=== PATIENT | male | born 1965 | race Caucasian/White ===

== ENCOUNTER → 2018-11-30 12:23 | Outpatient (CLI) | payer OTHER, SELFPAY ==
[2018-11-30 11:28] VITALS: BMI 26.6
[2018-11-30 13:30] LABS: Glucose 95 mg/dL (74-106)
[2018-11-30 13:31] LABS: ALB/GLOB Ratio 1.4 RATIO (0.9-2.4); AST(SGOT) 33 U/L (15-37); Alanine Aminotransfer ALT/SGPT 29 U/L (16-61); Albumin, Serum 4.1 g/dL (3.2-5.0); Alkaline Phosphatase 47 U/L (45-117); Anion Gap 3 (5-15); BUN 8 mg/dL (7-18); BUN/Creat Ratio 7.2 RATIO (10-20); Chloride 100 mmol/L (98-107); Cholesterol 207 mg/dL (200); Creatinine, Serum 1.11 mg/dL (0.70-1.30); EST Glomerular Filtration Rate 74 mL/min (>60); Est Glom Filt Rate - Afr Amer 90 mL/min (>60); Globulin 2.9 g/dL (2.2-4.2); High Density Lipoprotein 89 mg/dL; PSA,Total - Annual Screen 0.22 ng/mL (0.00-4.00); Potassium 4.2 mmol/L (3.5-5.1); Sodium Level 134 mmol/L (136-145); Triglycerides 37 mg/dL; Very Low Density Lipoprotein 7 mg/dL (5-40)
== END ==
PROVIDERS: Family Provider Family Medicine; PCP Family Medicine; Referring Provider Family Medicine; Visit Provider Family Medicine
DX: Z00.00 Encounter for general adult medical examination without abnormal findings (principal)
CPT/HCPCS: 36415; 80053; 80061; 84153; 84403; G0103

== ENCOUNTER → 2019-03-16 09:05 | Outpatient (CLI) | payer OTHER, SELFPAY ==
[2019-03-11 11:19] VITALS: BMI 26.6
--- NOTE | 2019-03-16 09:08 | US_ITS ---
STUDY: ABDOMINAL ULTRASOUND - RIGHT UPPER QUADRANT REASON FOR VISIT: Male, 53 years old. Left lower quadrant pain TECHNIQUE: Ultrasound evaluation of the right upper quadrant was performed with real-time and static milner-scale imaging. TECHNICAL QUALITY: Adequate. COMPARISON: None. FINDINGS: There are somewhat prominent lymph nodes in the left inguinal region measuring up to 1.7 x 1 x 0.7 cm. These demonstrate normal reniform morphology and central fatty hilum. There is no abnormal vascularity. US/Abdomen Limited IMPRESSION: Nonspecific left inguinal lymph nodes. Electronically Signed: Rob Castellano, at 11:48 EDT Tel , Service support ,
== END ==
PROVIDERS: Family Provider Family Medicine; PCP Family Medicine; Referring Provider Nurse Practitioner Family; Visit Provider Nurse Practitioner Family
DX: R10.32 Left lower quadrant pain (principal)
CPT/HCPCS: 76705

== ENCOUNTER → 2019-03-18 17:40 | Outpatient (CLI) | payer OTHER, SELFPAY ==
[2019-03-11 11:19] VITALS: BMI 26.6
--- NOTE | 2019-03-18 17:45 | CT_ITS ---
STUDY: CT ABDOMEN AND PELVIS WITH CONTRAST REASON FOR EXAM: Male, 53 years old. Left groin pain and adenopathy. RADIATION DOSAGE (If Supplied By Facility): CTDIvol = ( 14.94 ) mGy, DLP = ( 893.22 ) mGycm TECHNIQUE: Transaxial images were obtained from the dome of the diaphragm to the symphysis pubis with oral contrast. 100ML IV/Oral Isovue 300 was administered. Sagittal and coronal images were reconstructed. Individualized dose optimization techniques were used for this CT. COMPARISON: None. FINDINGS: The visualized lung bases are unremarkable. The visualized portions of the heart are within normal limits. Normal liver. Normal gallbladder and extrahepatic biliary system. Normal spleen. Normal pancreas. Normal bilateral adrenal glands. Normal right kidney. Normal left kidney. Normal visualized stomach. Normal small intestine. Normal colon. The appendix is visualized and appears normal. There is diffuse atherosclerotic calcification of the abdominal aorta, without a demonstrated aneurysm. Normal inferior vena cava. Normal retroperitoneum. Normal urinary bladder. Shotty inguinal lymph nodes. The largest lymph node on the right is below the inguinal ligament and measures 27 x 5 x 9 mm. The largest lymph node on the left is 5 x 6 x 24 mm with otherwise fairly normal appearing morphology. Minimal degenerative changes of the lumbar spine. Benign appearing cyst of the acetabular roof on the left side. No acute bone or joint findings. CT/Abdomen/Pelvis WITH Contrast IMPRESSION: Shotty bilateral groin lymph nodes as described above. These have otherwise normal morphology. No additional groin abnormalities. Otherwise normal abdomen and pelvic CT exam for age. Electronically Signed: Lisa Jerry MD at 18:56 EDT , Service support ,
== END ==
PROVIDERS: Family Provider Family Medicine; PCP Family Medicine; Referring Provider Nurse Practitioner Family; Visit Provider Nurse Practitioner Family
DX: R10.32 Left lower quadrant pain (principal); R59.0 Localized enlarged lymph nodes
CPT/HCPCS: 74177; Q9967

== ENCOUNTER → 2020-02-23 14:25 | Outpatient (CLI) | payer OTHER, SELFPAY ==
[2020-02-23 13:59] VITALS: BMI 26.6
[2020-02-23 17:04] LABS: Anion Gap 6 (5-15); BUN 8 mg/dL (7-18); BUN/Creat Ratio 8.5 RATIO (10-20); Calcium,Total 8.9 mg/dL (8.5-10.1); Chloride 95 mmol/L (98-107); Creatinine, Serum 0.94 mg/dL (0.70-1.30); EST Glomerular Filtration Rate 90 mL/min (>60); Est Glom Filt Rate - Afr Amer 109 mL/min (>60); Glucose 88 mg/dL (74-106); PSA,Total - Annual Screen 0.24 ng/mL (0.00-4.00); Potassium 4.2 mmol/L (3.5-5.1); Sodium Level 130 mmol/L (136-145)
[2020-02-27 16:08] LABS: Endomysial Antibody IgA Negative (Negative)
[2020-02-27 19:41] LABS: Immunoglobulin A 169 mg/dL (90-386); t-Transglutaminase IgA <2 U/mL (0-3)
== END ==
PROVIDERS: PCP Family Medicine; Referring Provider Family Medicine; Visit Provider Family Medicine
DX: Z00.00 Encounter for general adult medical examination without abnormal findings (principal); R10.9 Unspecified abdominal pain
CPT/HCPCS: 36415; 80048; 82784; 83516; 84153; 86255; G0103

== ENCOUNTER 2020-11-27 09:32 | Emergency (ER) | payer OTHER, SELFPAY ==
[2020-02-23 13:59] VITALS: BMI 26.6
[2020-11-27 09:33] VITALS: BP 156/103; PULSE 76; RESP 15; TEMP 36.8; O2SAT 99; BMI 27.8
--- NOTE | 2020-11-27 10:01 | RAD_ITS ---
STUDY: X-RAY CHEST REASON FOR EXAM: Male, 55 years old. 3 day history of intermittent dizziness. TECHNIQUE: Single AP portable view of the chest. COMPARISON: None. FINDINGS: EKG electrodes are seen. Hyperinflation. The lungs are clear. There is no demonstrated pleural abnormality. Normal size heart. Normal mediastinum and martha. There is prominence of the pulmonary hilar arteries without peripheral pulmonary vascular congestion, suggesting pulmonary hypertension. Normal visualized aortic arch and descending thoracic aorta. Normal visualized thoracic spine. Normal visualized ribs, clavicles, and shoulders. There is no demonstrated abnormality of the visualized soft tissue structures of the upper abdomen. RAD/Chest 1 View (Portable) IMPRESSION: Hyperinflation. Prominence of the central pulmonary arteries. Electronically Signed: Tim Knox MD at 10:48 EDT , Service support ,
--- NOTE | 2020-11-27 10:01 | CT_ITS ---
STUDY: CT BRAIN WITHOUT CONTRAST REASON FOR EXAM: Male, 55 years old. 3 day history of dizziness. RADIATION DOSAGE (If Supplied By Facility): CTDIvol = ( 44.99 ) mGy, DLP = ( 829.85 ) mGycm TECHNIQUE: Transaxial CT imaging of the brain was performed without administration of intravenous contrast material. Individualized dose optimization techniques were used for this CT. COMPARISON: No relevant priors. FINDINGS: Normal soft tissue structures. Normal calvarium. Normal size ventricles and extra-axial spaces for the patient''s age. Normal white matter tracts of the cerebral hemispheres. Normal basal ganglia and thalami. Normal brainstem. There is mild cerebellar atrophy. There is no intracranial hemorrhage. There are no findings of an acute ischemic infarction. Atherosclerotic calcification of the cavernous portions of the internal carotid arteries bilaterally. 8.8 mm polyp or retention cyst in the lateral wall of the right maxillary sinus. CT/Brain/Head without Contrast IMPRESSION: Mild degree of cerebellar atrophy. Electronically Signed: Tim Knox MD at 10:47 EDT , Service support ,
--- NOTE | 2020-11-27 10:01 | EKG12_ITS ---
Test Reason : DIZZY Blood Pressure : / mmHG Vent. Rate : 058 BPM Atrial Rate : 058 BPM P-R Int : 228 ms QRS Dur : 098 ms QT Int : 422 ms P-R-T Axes : 046 060 048 degrees QTc Int : 414 ms Sinus bradycardia with 1st degree A-V block Otherwise normal ECG Confirmed by YOUSUF MACKAY, JESSICA ([id number]), supervising editor news reel ROBERT PURI ([id number]) on 11/29/2020 9:09:16 AM Referred By: Confirmed By:JESSICA TO MD
[2020-11-27 10:16] LABS: Hematocrit 38.4 % (40-54); Hemoglobin 13.1 g/dL (13.0-16.5); Mean Corp Hgb Conc 34.1 g/dL (32-36); Mean Corpuscular Hgb 32.2 pg (27.0-32.0); Mean Corpuscular Volume 94.3 fL (80-94); Mean Platelet Vol. 9.7 fl (6.2-12.0); Platelet Count 210 K/mm3 (150-450); RBC Distribution Width CV 11.8 % (11.6-14.6); RBC Distribution Width SD 40.9 fl (35.1-43.9); Red Blood Count 4.07 M/mm3 (4.6-6.2)
[2020-11-27 10:17] VITALS: BP 135/83; BP 142/84; BP 150/89; PULSE 60; PULSE 62
[2020-11-27 10:38] LABS: ALB/GLOB Ratio 1.3 RATIO (0.9-2.4); AST(SGOT) 35 U/L (15-37); Alanine Aminotransfer ALT/SGPT 30 U/L (16-61); Alkaline Phosphatase 57 U/L (45-117); Anion Gap 5 (5-15); BUN 9 mg/dL (7-18); BUN/Creat Ratio 7.9 RATIO (10-20); Calcium,Total 8.9 mg/dL (8.5-10.1); Chloride 100 mmol/L (98-107); Creatinine, Serum 1.14 mg/dL (0.70-1.30); EST Glomerular Filtration Rate 71 mL/min (>60); Est Glom Filt Rate - Afr Amer 86 mL/min (>60); Estimated Creatinine Clearance 79.81 ml/min; Globulin 3.1 g/dL (2.2-4.2); Glucose 123 mg/dL (74-106); Potassium 3.7 mmol/L (3.5-5.1); Protein, Total 7.1 g/dL (6.4-8.2); Sodium Level 134 mmol/L (136-145)
--- NOTE | 2020-11-27 10:56 | EDS_ITS ---
HPI History of Present Illness Chief Complaint: Dizziness Informant: patient Onset/Context/Timing Onset: Yesterday Quality: Like I am going to pass out Location: Generalized Worsened by: Strenuous activity at times Relieved by: Nothing Associated Symptoms Associated Symptoms: Patient admits to some palpitations and nausea Narrative Narrative: Patient presents with dizziness that has been intermittent since yesterday. Patient states he feels like he is going to pass out. Patient states that sometimes this comes on when he is undergoing strenuous activity such as lifting weights. Patient states other times it comes on when he is at rest. Patient states that sometimes he feels like his heart is racing. Patient also admits to some nausea. 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 [facility] Medical History (Updated 11/27/20 @ 12:[address] Omkar Wolfe DO) Arthritis Bradycardia, sinus Chest discomfort Chest pain Chronic cough Dizziness Hiatal hernia with gastroesophageal reflux disease and esophagitis Home Medications omeprazole 40 mg capsule,delayed release 40 mg PO QDAY PRN cap 02/23/20 [History Last Taken Unknown] sildenafil 100 mg tablet 100 mg PO DAILY PRN #20 tab 04/25/20 [Rx Last Taken Unknown] Allergy/AdvReac Type Severity Reaction Status Date / Time No Known Allergies Allergy Verified 11/27/20 10:05 Family History Mother Heart disease Father Heart disease Grandfather Heart disease Surgical History History of elbow surgery (~10/2014) History of shoulder surgery History of vasectomy Social History Smoking Status: Never smoker alcohol intake: current alcohol intake frequency: a few times a week Alcohol type: beer, wine and hard liquor substance use type: does not use what type of physical activity do you participate in: running and weight training frequency: daily ROS ROS ED Constitutional Constitutional ED: Denies chills or fever(s) Eyes Eyes: Denies change in vision or diplopia ENT ENT ED: Denies rhinorrhea or sore throat Cardiovascular Cardiovascular: Reports palpitations; Denies chest pain Respiratory/Chest Respiratory/Chest: Denies cough or dyspnea Gastrointestinal Gastrointestinal: Reports nausea; Denies vomiting Genitourinary Genitourinary ED: Denies dysuria or hematuria Musculoskeletal Musculoskeletal: Denies back pain or neck pain Integumentary Denies abscess or rash Neurologic Neurologic: Reports headache(s); Denies paresthesias or weakness Allergic/Immunologic Allergic/Immunologic ED: Denies mouth swelling or urticaria EXAM Physical Exam Const Vital Signs: 11/27/20 09:33 11/27/20 09:42 11/27/20 10:17 Temperature 98.2 F Temperature Source Temporal Pulse Rate 76 Pulse Rate [Lying] 60 Pulse Rate [Sitting] 60 Pulse Rate [Standing] 62 Respiratory Rate 15 Respiratory Effort Normal Non-Labored Respiratory Pattern Normal Blood Pressure 156/103 H Blood Pressure [Lying] 135/83 H Blood Pressure [Sitting] 142/84 H Blood Pressure [Standing] 150/89 H Blood Pressure Mean 120 Blood Pressure Mean [Lying] 100 Blood Pressure Mean [Sitting] 103 Blood Pressure Mean [Standing] 109 Pulse Ox 99 Oxygen Delivery Method Room Air 11/27/20 11:48 Temperature Temperature Source Pulse Rate 70 Pulse Rate [Lying] Pulse Rate [Sitting] Pulse Rate [Standing] Respiratory Rate 20 H Respiratory Effort Respiratory Pattern Blood Pressure 143/99 H Blood Pressure [Lying] Blood Pressure [Sitting] Blood Pressure [Standing] Blood Pressure Mean 113 Blood Pressure Mean [Lying] Blood Pressure Mean [Sitting] Blood Pressure Mean [Standing] Pulse Ox 99 Oxygen Delivery Method Room Air Positive well nourished and well developed General Appearance ED: well developed HEENT Reports TM's clear and moist mucous membranes Tympanic Membrane ED: Yes TM's clear Eyes PERRL and EOMs intact bilaterally Neck supple and no JVD Chest Wall inspection of chest normal Resp normal respiratory effort and clear to auscultation bilaterally Cardio regular rate, regular rhythm and no murmurs GI normal to inspection, nondistended, normoactive bowel sounds, non-tender and non-distended Palpation: soft Extremity normal to inspection General Extremety ED: Negative for edema or tenderness General Extremity: Negative for edema Neuro oriented x3, CN's II-XII intact bilaterally and no sensory deficits noted Sensorium / Orientation: alert Motor Exam: strength 5/5 throughout MDM MDM MDM Narrative Medical decision making narrative: EKG was obtained and was normal. Chest x-ray and CT scan of the brain were within normal limits. CBC was normal. Compre hensive metabolic profile was essentially within normal limits. Troponin was normal. Patient was advised of his results. Patient was feeling better on reevaluation. Patient was able to ambulate to the bathroom and back without difficulty. Patient did report that he had his first COVID-19 vaccine last week. Patient states it was not the [employer] vaccine. I discussed the possibility of this being related to the vaccination and the data is unclear on this at this time. Patient was instructed to follow-up with his primary care physician in 5 to 7 days for further evaluation. Patient understood and was agreeable with the plan. All questions were answered. Lab Data Attestation: I reviewed the patient's lab results. Labs: Laboratory Results - last 24 hr 11/27/20 11/27/20 09:48 09:48 WBC 4.0 L RBC 4.07 L Hgb 13.1 Hct 38.4 L MCV 94.3 H MCH 32.2 H MCHC 34.1 RDW Std Deviation 40.9 RDW Coeff of Rafia 11.8 Plt Count 210 MPV 9.7 Sodium 134 L Potassium 3.7 Chloride 100 Carbon Dioxide 29.0 Anion Gap 5 BUN 9 Creatinine 1.14 Estim Creat Clear Calc 79.81 Est GFR (MDRD) Af Amer 86 Est GFR (MDRD) Non-Af 71 BUN/Creatinine Ratio 7.9 L Glucose 123 H Calcium 8.9 Total Bilirubin 0.80 AST 35 ALT 30 Alkaline Phosphatase 57 Troponin I < 0.015 Total Protein 7.1 Albumin 4.0 Globulin 3.1 Albumin/Globulin Ratio 1.3 Radiography Chest X-Ray - ED: 1 View, Read by ED Physician, Read by Radiologist, Normal, Heart, Lungs, Mediastinum, Bony Structures and No Acute Disease Diagnostic Testing: Radiology Impression Brain CT 11/27/20 10:01 IMPRESSION: Mild degree of cerebellar atrophy. Electronically Signed: Tim Knox MD at 10:47 EDT , Service support , Chest X-Ray 11/27/20 10:01 IMPRESSION: Hyperinflation. Prominence of the central pulmonary arteries. Electronically Signed: Tim Knox MD at 10:48 EDT , Service support , EKG Initial EKG: Attestation: I personally reviewed and interpreted this EKG as follows: Interpretation: Sinus Bradycardia (58 with first-degree AV block) Prior EKG tracings: not available for review Discharge Plan Triage Chief Complaint: Dizziness ED Provider: Omkar Wolfe Dx/Rx/DC Orders Clinical Impression: Near syncope Instructions: ED Dizziness, Uncertain Cause, ED Near-Fainting, Uncertain Cause Prescriptions: No Action omeprazole 40 mg capsule,delayed release(DR/EC) 40 mg PO QDAY PRN (Reason: reflux) RF: 0 sildenafil 100 mg tablet 100 mg PO DAILY PRN (Reason: sexual activity) Qty: 20 RF: 3 Primary Care Provider: Luther Tavera Referrals: Luther Tavera, [Primary Care Provider] - Disposition Patient Disposition: Home, self care
[2020-11-27 11:48] VITALS: BP 143/99; PULSE 70; RESP 20; O2SAT 99
[2020-11-27 12:12] VITALS: BP 132/87; PULSE 74; RESP 16; O2SAT 98
== END 2020-11-27 12:12 | disposition home or self-care (01) ==
PROVIDERS: Emergency Provider Emergency Medicine; PCP Family Medicine
DX: R55 Syncope and collapse (principal); R42 Dizziness and giddiness; I44.0 Atrioventricular block, first degree
CPT/HCPCS: 70450; 71045; 80053; 84484; 85027; 93005; 99285; A4216

== ENCOUNTER → 2020-12-21 13:46 | Outpatient (CLI) | payer OTHER, SELFPAY ==
[2020-11-28 08:07] VITALS: BMI 27.8
== END ==
PROVIDERS: PCP Family Medicine; Referring Provider Internal Medicine Cardiovascular Disease; Visit Provider Internal Medicine Cardiovascular Disease
DX: R42 Dizziness and giddiness (principal); R55 Syncope and collapse; R00.1 Bradycardia, unspecified
CPT/HCPCS: 93225; 93226

== ENCOUNTER → 2021-02-22 09:41 | Outpatient (CLI) | payer OTHER, SELFPAY ==
[2021-02-07 13:56] VITALS: BMI 27.5
--- NOTE | 2021-02-22 12:50 | STRESSREP_ITS ---
Stress Test Report Date: 02-22-2021 Procedure: Exercise tolerance test Indications: Sinus bradycardia; near syncope Consent: Per the patient Procedure: The patient exercised on a Anton protocol for 12 minutes and 30 seconds completing Stage IV and 30 seconds of Stage V achieving a peak heart rate of 144 bpm (86% predicted maximal heart rate) with a peak blood pressure 200/82 mmHg and a peak MET capacity of approximately 14 MET's. The baseline ECG demonstrated sinus rhythm. The peak exercise ECG demonstrated somatic/motion artifact with no obvious ECG changes. There were no cardiac dysrhythmias pretest, during exercise, or recovery. The functional capacity was considered good. The patient had no complaint of chest discomfort during exercise or recovery. The examination was discontinued secondary to dyspnea. Impression: 1. Technically adequate (percent predicted maximal heart rate greater than 85%) exercise tolerance test 2. Peak exercise ECG with with somatic/motion artifact with no obvious ECG changes 3. There were no cardiac dysrhythmias during exercise or recovery This note was generated with [employer].ation software. It may contain incorrect words, spelling, and punctuation that were not noted in checking the note before signing.
== END ==
PROVIDERS: PCP Family Medicine; Referring Provider Internal Medicine Cardiovascular Disease; Visit Provider Internal Medicine Cardiovascular Disease
DX: R00.1 Bradycardia, unspecified (principal); R42 Dizziness and giddiness; R55 Syncope and collapse
CPT/HCPCS: 93017

== ENCOUNTER → 2021-04-24 07:27 | Outpatient (CLI) | payer OTHER, SELFPAY ==
[2021-04-24 10:11] LABS: Hematocrit 39.1 % (40-54); Hemoglobin 13.3 g/dL (13.0-16.5); Mean Corpuscular Hgb 32.5 pg (27.0-32.0); Mean Corpuscular Volume 95.6 fL (80-94); Mean Platelet Vol. 10.3 fl (6.2-12.0); Platelet Count 240 K/mm3 (150-450); RBC Distribution Width CV 11.8 % (11.6-14.6); RBC Distribution Width SD 41.1 fl (35.1-43.9); Red Blood Count 4.09 M/mm3 (4.6-6.2); White Blood Count 4.2 K/mm3 (4.4-11.0)
[2021-04-24 10:29] LABS: Vitamin B12 433 pg/mL (211-911)
[2021-04-24 10:31] LABS: Hemoglobin A1c 5.3 % (3.8-5.6)
[2021-04-24 10:50] LABS: ALB/GLOB Ratio 1.2 RATIO (0.9-2.4); AST(SGOT) 33 U/L (15-37); Alanine Aminotransfer ALT/SGPT 30 U/L (16-61); Albumin, Serum 3.7 g/dL (3.2-5.0); Alkaline Phosphatase 53 U/L (45-117); Anion Gap 5 (5-15); BUN 13 mg/dL (7-18); BUN/Creat Ratio 13.2 RATIO (10-20); Calcium,Total 8.9 mg/dL (8.5-10.1); Chloride 103 mmol/L (98-107); Creatinine, Serum 0.98 mg/dL (0.70-1.30); EST Glomerular Filtration Rate 85 mL/min (>60); Est Glom Filt Rate - Afr Amer 102 mL/min (>60); Ferritin 155 ng/mL (26-388); Globulin 3.2 g/dL (2.2-4.2); Glucose 102 mg/dL (74-106); Iron 133 ug/dL (65-175); Potassium 3.6 mmol/L (3.5-5.1); Protein, Total 6.9 g/dL (6.4-8.2); Sodium Level 137 mmol/L (136-145); Thyroid Stim Hormone (TSH) 2.54 uIU/mL (0.358-3.74)
[2021-04-25 17:06] LABS: ANTINUCLEAR ANTIBODIES DIRECT Negative (Negative)
[2021-04-29 09:17] LABS: Vitamin B1, Thiamine 98.7 nmol/L (66.5-200.0)
== END ==
PROVIDERS: PCP Family Medicine; Referring Provider Psychiatry & Neurology Neurology; Visit Provider Psychiatry & Neurology Neurology
DX: H81.90 Unspecified disorder of vestibular function, unspecified ear (principal); D64.9 Anemia, unspecified; Z86.2 Personal history of diseases of the blood and blood-forming organs and certain disorders involving the immune mechanism
CPT/HCPCS: 36415; 80053; 82140; 82607; 82728; 82746; 83036; 83540; 84425; 84443; 85027; 86038; 86225; 86235

== ENCOUNTER → 2022-06-18 | Outpatient (CLI) | payer OTHER, SELFPAY ==
[2022-06-18 10:18] LABS: Bacteria 0 SEEN /hpf (None Seen); Mucous, Urine 0 SEEN /hpf (<or=2+); Red Blood Cells-Urine 0 SEEN /hpf (0-5); Squamous Epithelial Cells - UA 0 SEEN /hpf (0-5); White Blood Cells 0 SEEN /hpf (0-5)
[2022-06-18 10:50] LABS: Color, Urine Yellow (Yellow); Glucose, Dipstick Normal (Normal); Ketone-Dipstick Negative (Negative); Leukocyte Esterase-Dipstick Negative /ul (Negative); Nitrite-Dipstick Negative (Negative); Occult Blood-Urine Negative /ul (Negative); Protein-Dipstick Negative (Negative); Urine Bilirubin Dipstick Negative (Negative); Urine Clarity Clear (Clear); Urine Urobilinogen Normal (Normal)
[2022-06-18 10:52] LABS: Absolute Neutrophil Count 2.2 X10^3/uL (2.0-7.7); Basophil# 0.06 X10^3/uL; Basophil% 1.3 % (0-1); Eosinophil# 0.16 X10^3/uL; Eosinophils% 3.5 % (0-5); Hematocrit 40.7 % (40-54); Hemoglobin 13.8 g/dL (13.0-16.5); Lymphocyte % 34.8 % (19-41); Mean Corp Hgb Conc 33.9 g/dL (32-36); Mean Corpuscular Hgb 32.2 pg (27.0-32.0); Mean Corpuscular Volume 95.1 fL (80-94); Mean Platelet Vol. 9.7 fl (6.2-12.0); Monocyte# 0.54 X10^3/uL; Monocyte% 11.7 % (0-10); NRBC Flagged by Analyzer 0 % (0-5); Neutrophil # 2.23 X10^3/uL (2.7-7.7); Neutrophil % 48.5 % (47-70); Platelet Count 234 K/mm3 (150-450); RBC Distribution Width CV 11.9 % (11.6-14.6); Red Blood Count 4.28 M/mm3 (4.6-6.2); White Blood Count 4.6 K/mm3 (4.4-11.0)
[2022-06-18 11:33] LABS: Anion Gap 4 (5-15); BUN 12 mg/dL (7-18); BUN/Creat Ratio 12.3 RATIO (10-20); Calcium,Total 9.6 mg/dL (8.5-10.1); Chloride 103 mmol/L (98-107); Creatinine, Serum 0.97 mg/dL (0.70-1.30); EST Glomerular Filtration Rate 85 mL/min (>60); Est Glom Filt Rate - Afr Amer 103 mL/min (>60); Glucose 90 mg/dL (74-106); PSA,Total- Diagnostic 0.21 ng/mL (0.0-4.0); Potassium 4.2 mmol/L (3.5-5.1); Sodium Level 138 mmol/L (136-145)
== END | disposition home or self-care (01) ==
LOC: LAB 10:16
PROVIDERS: PCP Family Medicine; Referring Provider Family Medicine; Visit Provider Family Medicine
DX: R35.0 Frequency of micturition (principal); R55 Syncope and collapse; R23.3 Spontaneous ecchymoses
CPT/HCPCS: 36415; 80048; 81001; 84153; 85025

== ENCOUNTER → 2023-07-09 | Outpatient (CLI) | payer OTHER, SELFPAY ==
[2023-07-09 13:00] LABS: ALB/GLOB Ratio 1.4 RATIO (0.9-2.4); AST(SGOT) 39 U/L (15-37); Alanine Aminotransfer ALT/SGPT 30 U/L (16-61); Albumin, Serum 4.1 g/dL (3.2-5.0); Alkaline Phosphatase 49 U/L (45-117); Anion Gap 6 (5-15); BUN 12 mg/dL (7-18); BUN/Creat Ratio 12.4 RATIO (10-20); Chloride 98 mmol/L (98-107); Creatinine, Serum 0.97 mg/dL (0.70-1.30); EST Glomerular Filtration Rate 85 mL/min (>60); Est Glom Filt Rate - Afr Amer 103 mL/min (>60); Glucose 103 mg/dL (74-106); PSA,Total- Diagnostic 0.22 ng/mL (0.0-4.0); Protein, Total 7.1 g/dL (6.4-8.2); Sodium Level 133 mmol/L (136-145)
== END | disposition home or self-care (01) ==
LOC: BIMLAB 09:35
PROVIDERS: PCP Family Medicine; Visit Provider Family Medicine
DX: Z00.00 Encounter for general adult medical examination without abnormal findings (principal)
CPT/HCPCS: 36415; 80053; 84153

== ENCOUNTER → 2024-11-02 | Outpatient (CLI) | payer OTHER, SELFPAY ==
--- NOTE | 2024-11-02 14:54 | CT_ITS ---
PROCEDURE: LIMITED CHEST CT CARDIAC ONLY REASON FOR EXAM: FAMILY HISTORY HEART DISEASE TECHNIQUE: Supine chest CT without contrast, high resolution CT (HRCT) protocol. One or more dose reduction techniques were used (e.g., Automated exposure control, adjustment of the mA and/or kV according to patient size, use of iterative reconstruction technique). COMPARISON: None FINDINGS: Hardware: None Lymph nodes: Small benign-appearing mediastinal lymph nodes. Heart and Vasculature: Normal heart size. No pericardial effusion. Coronary Artery Calcifications: Present Lungs and Airways: The lungs are normally expanded and clear. No septal thickening nodules or abnormal pulmonary opacities. Pleura: Unremarkable Upper Abdomen: Unremarkable Bones: Unremarkable CT/Limited Chest CT Cardiac Only IMPRESSION: Coronary artery calcification (CAC) is is present Reading Location: [place] [id number]
--- NOTE | 2024-11-02 17:07 | CA.SCORE ---
Calcium Scoring Date of Study:: 11/02/24 Indications Indications: Family history Coronary Calcium Scoring: High-resolution Computed Tomographic imaging of the chest was performed on [11-25], with particular attention paid to the coronary arteries. Images from the examination were analyzed for the presence and extent of coronary artery calcification , using coronary calcium quantification software. The patient tolerated the procedure well and there were no complications. The results of the coronary calcification analysis are provided below. Findings Coronary Artery Left Main (LM): 0.79 Left Anterior Descending (LAD): 65 Left Circumflex (LCX): 3.5 Right Coronary Artery (RCA): 103 Total Agatston Score: 172.29 Percentile Rankin-75th percentile Calcium Scoring Interpretation: Different methods to categorize the overall amount of coronary plaque. Overall amount CAC SIS Visual of coronary plaque P1 Mild -100 <2 1-2 vessels with mild amount of plaque P2 Moderate 101-300 3-4 1-2 vessels with moderate amount, 3 vessels with mild amount of plaque P3 Severe 301-999 5-7 3 vessels with moderate amount, 1 vessel with severe amount of plaque P4 Extensive >1000 >8 2-3 vessels with severe amount of plaque Calcium Score: Mild: 1-2 vessels w/mild amount of plaque Conclusion: Mild atherosclerotic plaquing noted
== END | disposition home or self-care (01) ==
LOC: CT 14:45
PROVIDERS: PCP Family Medicine; Referring Provider Family Medicine; Visit Provider Family Medicine
DX: I25.10 Atherosclerotic heart disease of native coronary artery without angina pectoris (principal); Z82.49 Family history of ischemic heart disease and other diseases of the circulatory system
CPT/HCPCS: 75571; 76380

== ENCOUNTER → 2025-02-24 | Outpatient (CLI) | payer OTHER, SELFPAY ==
--- OUTSIDE RECORDS SUMMARY | 2025-02-24 11:32 | XMS RPT_ITS | CCD ---
Author Organization [facility] Care Team Providers Care [facility] Lpn Name Role Phone Yensho TACTICAL DEBRIEFER OFFICER, Khadra A Unavailable Unavailab le Yensho TACTICAL DEBRIEFER OFFICER, Khadra A Unavailable Unavailab le Yensho TACTICAL DEBRIEFER OFFICER, Khadra A Unavailable Unavailab Dr. Luther Joy Primary Care Provider [phone] Dr. Luther Tavera Attending Provider [phone] Dr. Luther Tavera Referring Provider [phone] Dr. Luther Tavera Primary Care Provider [phone] Dr. Luther Tavera Attending Provider [phone] Luther Tavera Referring Provider Dr. Luther Tavera DO Primary Care Provider Dr. Luther Tavera DO Attending Provider [phone] Dr. Luther Tavera DO Referring Provider [phone] Dr. Luther Tavera DO Other Provider [phone] Jean Green MD Attending Provider [phone] Dr. Luther Tavera DO Primary Care Provider Dr. Luther Tavera DO Attending Provider [phone] Dr. Luther Tavera DO Referring Provider [phone] Luther Tavera Primary Care Unavailable Luther Tavera Attending Unavailable Luther Tavera Referring Unavailable Luther Tavera Primary Care Unavailable Jean Green Attending Unavailable Luther Tavera Primary Care Unavailable Luther Tavera Attending Unavailable Brown, Luther R Referring Unavailable Jean Green Attending Unavailable LiangUrbanoLuther R Referring Unavailable Brown, Luther R Primary Care Unavailable Liang, Luther R Primary Care Unavailable Karan Briscoe Attending Unavailable Liang, Luther R Referring Unavailable Luther Tavera R Consulting Unavailable Jean Green Attending Unavailable LiangLuther R Referring Unavailable Brown, Luther R Primary Care Unavailable Allergies Allergy Classification Reported Allergen(s) Allergy Type Date of Onset Reaction(s) Facility NEGATED: Highlighted row has been ruled out! (1 source) Observed no known allergies at [facility] No Known Allergies 7 propensity to adverse reactions Pul[facility] [employer] Work Phone: NEGATED: Highlighted row has been ruled out! (2 sources) Observed no known allergies at [facility] No Known Allergies 7 propensity to adverse reactions [facility] [employer] Work Phone: Medications Current Medications Medication Drug Class(es) Dates Sig (Normalized) Sig (Original) Multivitamin preparation (2 sources) Start: 04-04-2021 take 1 tablet by mouth once daily Multivitamin Active 1 TABLET PO DAILY April 03, 2021 11:00pm Completed/Discontinued Medications Medication Drug Class(es) Dates Sig (Normalized) Sig (Original) Adjuvant As01b (Pf)Vial 1 Of 2 (Shingrix Adjuvant Component-Pf) suspension (4 sources) Start: 03-30-2018 End: 03-11-2019 Adjuvant As01b (Pf)Vial 1 Of 2 (Shingrix Adjuvant Component-Pf) suspension Discontinued 1 mL IM ONCE 0.5 March 30, 2018 12:00am March 11, 2019 11:18am Start: 03-30-2018 End: 03-11-2019 Adjuvant As01b (Pf)Vial 1 Of 2 (Shingrix Adjuvant Component-Pf) suspension Discontinued 1 ML IM ONCE 0.5 March 29, 2018 11:00pm March 11, 2019 10:18am [id number] 200 actuat albuterol 0.09 mg/actuat metered dose inhaler (7 sources) beta2-Adrenergic Agonist Start: 12-23-2017 End: 12-23-2017 Albuterol Sulfate (Proair Hfa) 90 mcg/actuation HFA aerosol inhaler Discontinued 2 NMA INHALATION Q4H as needed December 23, 2017 12:00am December 23, 2017 9:01am Start: 12-23-2017 End: 12-23-2017 take 1 puff(s) by inhalation every four hours Albuterol Sulfate (Proair Hfa) 90 mcg/actuation HFA aerosol inhaler Discontinued 2 PUFF INHALATION Q4H December 22, 2017 11:00pm December 23, 2017 8:01am Start: 03-11-2016 take 2 puff(s) by in halation every four to six hours as needed for wheezing PROAIR HFA 108 (90 Base) MCG/ACT AERS 2 puffs INH q 4-6 hours PRN Wheezing ALBUTEROL SULFATE [id number] Klarissa Martinez CNP emollient clobetasol propionate 0.5 mg/ml topical cream (4 sources) Corticosteroid Start: 07-03-2021 End: 06-18-2022 Clobetasol-Emollient 0.05 % cream Discontinued 1 NMA TOPICAL TWICE A DAY 30 July 03, 2021 1:00am June 18, 2022 10:31am dicyclomine hydrochloride 20 mg oral tablet (2 sources) Anticholinergic Start: 07-30-2023 End: 06-15-2024 take 1 tablet by mouth twice daily Dicyclomine 20 mg tablet Discontinued 20 mg PO TWICE A DAY 60 July 30, 2023 1:00am June 15, 2024 4:01pm fluticasone propionate 0.05 mg/actuat metered dose nasal spray (6 sources) Corticosteroid Start: 03-11-2016 End: 09-29-2016 take 1 spray(s) nasal route once daily FLONASE ALLERGY RELIEF 50 MCG/ACT SUSP 1 spray each nostril daily FLUTICASONE PROPIONATE [id number] Klarissa Martinez CRUSHER MACHINE OPERATOR meclizine hydrochloride 25 mg oral tablet (8 sources) Antiemetic Start: 04-04-2021 End: 06-18-2022 take 1 tablet by mouth twice daily Meclizine 25 mg tablet Discontinued 25 mg PO TWICE A DAY 60 April 04, 2021 12:00am June 18, 2022 10:31am Start: 11-28-2020 End: 12-17-2020 take 1 tablet by mouth twice daily as needed for dizziness Meclizine 25 mg tablet Discontinued 25 mg PO TWICE A DAY as needed for dizziness November 28, 2020 12:00am December 17, 2020 12:59pm Multivitamin tablet (2 sources) Start: 04-04-2021 End: 06-15-2024 Multivitamin tablet Discontinued 1 {tbl} PO DAILY April 04, 2021 12:00am June 15, 2024 3:56pm omeprazole 40 mg delayed release oral capsule (20 sources) Proton Pump Inhibitor Start: 12-21-2017 End: 12-17-2020 take 1 capsule by mouth once daily Omeprazole 40 mg capsule,delayed release(DR/EC) Discontinued 40 mg PO daily May 12, 2019 4:39pm February 23, 2020 1:57pm Start: 03-11-2016 OMEPRAZOLE 40 MG CPDR 1 cap daily OMEPRAZOLE [id number] Klarissa Martinez CNP predniSONE 10 mg oral tablet (2 sources) Start: 06-15-2024 End: 07-12-2024 Prednisone 10 mg tablet Discontinued 10 mg PO As Directed June 15, 2024 1:00am July 12, 2024 5:16pm see taper instructions: 5 tabs x 2 days, 4 tabs x 2 day, 3 tabs x 2 days, 2 x 2, 1 x 2 sildenafil 100 mg oral tablet (20 sources) Phosphodiesterase 5 Inhibitor Start: 10-01-2021 End: 07-12-2024 Sildenafil 100 mg tablet Discontinued 100 mg PO DAILY as needed for sexual activity September 01, 2023 1:46pm July 12, 2024 5:22pm administer 30 minutes to 4 hours before activity Start: 11-30-2018 End: 12-17-2020 Sildenafil 100 mg tablet Dis continued 100 mg PO DAILY as needed for sexual activity April 25, 2020 1:34pm December 17, 2020 12:59pm administer 30 minutes to 4 hours before activity Problems Active Problems Problem Classification Problem Date Documented Da te Episodic/Chronic Allergic reactions (4 sources) Hand eczema; Translations: [Dermatitis, unspecified] 07-03-2021 Episodic Cardiac dysrhythmias (3 sources) Sinus bradycardia; Translations: [Bradycardia, unspecified] Onset: 09-29-2016 09-29-2016 Chronic Cardiac dysrhythmias (5 sources) Sinus bradycardia; Translations: [Bradycardia, unspecified] Onset: 12-21-2024 03-30-2018 Episodic Coagulation and hemorrhagic disorders (5 sources) Easy bruising; Translations: [Spontaneous ecchymoses] Episodic Conditions associated with dizziness or vertigo (4 sources) Meniere's disease; Translations: [Meniere's disease, unspecified ear] 11-28-2020 Chronic Conditions associated with dizziness or vertigo (12 sources) Dizziness; Translations: [Vertiginous syndrome] Onset: 03-11-2016 03-11-2016 Episodic Coronary atherosclerosis and other heart disease (1 source) Atherosclerotic heart disease of [place] coronary artery without angina pectoris; Translations: [Atherosclerotic heart disease of [place] coronary artery without angina pectoris] Onset: 11-14-2024 Chronic Deficiency and other anemia (4 sources) Anemia; Translations: [Anemia, unspecified] 04-04-2021 Episodic Diabetes mellitus without complication (4 sources) Hyperglycemia; Translations: [Hyperglycemia, unspecified] 04-04-2021 Episodic Genitourinary symptoms and ill-defined conditions (6 sources) Increased frequency of urination; Translations: [Frequency of micturition] Episodic Headache; including migraine (3 sources) Tension-type headache; Translations: [Tension-type headache, unspecified, not intractable] 09-08-2023 Chronic Nonspecific chest pain (10 sources) Atypical chest pain; Translations: [Chest pain] Onset: 08-30-2015 03-11-2016 Episodic Other gastrointestinal disorders (4 sources) Irritable bowel syndrome with diarrhea; Translations: [Irritable bowel syndrome with diarrhea] 07-01-2023 Chronic Other gastrointestinal disorders (2 sources) Irritable bowel syndrome with diarrhea; Translations: [Irritable bowel syndrome] Onset: 07-12-2024 07-01-2023 Chronic Other male genital disorders (7 sources) Male erectile dysfunction, unspecified; Translations: [Erectile dysfunction] Onset: 07-12-2024 11-30-2018 Chronic Other nervous system disorders (3 sources) Piriformis syndrome; Translations: [Lesion of sciatic nerve, unspecified lower limb] 06-16-2024 Chronic Other screening for suspected conditions (not mental disorders or infectious disease) (2 sources) Calcification of coronary artery; Translations: [Abnormal findings on diagnostic imaging of heart and coronary circulation] Onset: 11-02-2024 11-22-2024 Episodic Comment on above: Total = 173 Other skin disorders (4 sources) Loring - lesion ; Translations: [Corns and callosities] 07-01-2023 Episodic Other skin disorders (1 source) Corns and callosities; Translations: [Corns and callosities] 07-01-2023 Episodic Residual codes; unclassified (8 sources) Family history of ischemic heart disease and other diseases of the circulatory system; Translations: [Family history of coronary arteriosclerosis] Onset: 07-12-2024 08-23-2015 Episodic Syncope (10 sources) Near syncope; Translations: [Syncope and collapse] Onset: 12-21-2024 Episodic Past or Other Problems Problem Classification Problem Date Documented Da te Episodic/Chronic Abdominal hernia (3 sources) Hiatal hernia; Translations: [Diaphragmatic hernia without obstruction or gangrene] Onset: 06-11-2016 06-11-2016 Episodic Abdominal pain (3 sources) Abdominal pain; Translations: [Unspecified abdominal pain] Onset: 06-11-2016 06-11-2016 Episodic Other lower respiratory disease (3 sources) Chronic cough; Translations: [Cough] Onset: 09-13-2015 09-13-2015 Episodic Other lower respiratory disease (3 sources) Lung mass; Translations: [Solitary pulmonary nodule] Onset: 09-11-2015 09-11-2015 Episodic Other nutritional; endocrine; and metabolic disorders (3 sources) Body mass index (BMI) 29.0-29.9, adult; Translations: [Body mass index (BMI) 29.0-29.9, adult] Onset: 09-28-2015 09-28-2015 Episodic Spondylosis; intervertebral disc disorders; other back problems (8 sources) Low back pain; Translations: [Low back pain] Onset: 06-24-2024 Episodic Results Test Name Value Interpretation Reference Range Facility Cardiology Visit Reporton Cardiology Visit Report [facility] [address] [place], [place] [address] OFFICE VISIT Date of Service: 12/21/24 MR#: [id number] Acct: [id number] Name: RANGEL CASTRO Jr. Rep #: [id number] : 1965 Provider: Dr. Jean Green MD Age/Sex: 59/M Location: [facility] [place] Status: Signed HPI HPI History of Present Illness Details: 59-year-old man with no previous cardiac history who presents for evaluation of an abnormal coronary calcium score. He denies any chest pain or shortness of breath or paroxysmal nocturnal dyspnea or pedal edema he has had no neck arm or jaw discomfort suggest angina. He does have a significant family history of heart disease with his father having heart disease at age 54 grandfather at age 38. He did have a lipid profile in 2019 and at that time his HDL was favorable at 89 and a total cholesterol of 207. His previous echocardiogram was from 2016. He remains completely asymptomatic otherwise. His physical exam demonstrates clear lung yeboah regular rate and rhythm no pedal edema his electrocardiogram demonstrates sinus rhythm with a rate of 56 bpm. Intake Vital Signs 07/12/24 16:19 12/21/24 15:27 Height 5 ft 10 in 5 ft 10 in Weight: 208 lb 203 lb BMI 29.8 29.1 BP 116/70 129/79 H Blood Pressure Location Lt brachial Lt brachial Position Sitting Sitting Respiration 16 16 Pulse 52 L 58 L Pulse Source Monitor Monitor Temp 97.2 F L Pulse Oximetry (%) 98 Oxygen Delivery Method room air Intake Visit Reasons: ABN CCTA (LIANG) [employer] Service Helper Required: No Accompanied by: Self Is patient in pain?: No Allergies No Known Allergies Allergy (Verified 12/21/24 15:32) Medications ???Medication ???Instructions ???Recorded ???Confirmed ???Type sildenafil 100 mg tablet 100 mg PO DAILY PRN sexual 4 11/22/24 Rx activity #20 tabs PFSH Medical History Arthritis Bradycardia, sinus Chest discomfort Chest pain Chronic cough Dizziness Elevated coronary artery calcium score (11/02/24) Erectile dysfunction GERD (gastroesophageal reflux disease) Hiatal hernia with gastroesophageal reflux disease and esophagitis Meniere disease Surgical History History of elbow surgery ( 10/2014) History of shoulder surgery History of vasectomy Family History Father Heart disease, Onset Age: 54 Grandfather Heart disease, Onset Age: 38 Uncle CVA (cerebral vascular accident) Uncle CVA (cerebral vascular accident) Social History adopted: No household members: spouse number of children: 2 current occupational status: employed 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[employer] pets and animals: No sexually active: Yes Smoking Status: Never smoker alcohol intake: current alcohol intake frequency: a few times a week Alcohol type: beer, wine and hard liquor substance use type: does not use caffeine: Yes (6) Type: coffee what type of physical activity do you participate in: running and weight training frequency: 5-6 times per week do you feel safe at home: Yes ROS Const Const: Negative for fatigue, weakness, headache(s), daytime sleepiness or difficulty sleeping ENT ENT: Negative for headache(s), dizziness or Nosebleed/epistaxis Cardio Chest Pain: No Palpitations: No Edema: None Resp Respiratory: Negative for SOB with activity, SOB at rest, SOB orthopnea SOB lying down or Cough GI GI: Negative nausea, vomiting or heartburn Neuro Neuro: Negative for dizziness, lightheadedness, near syncope, headache(s) or weakness Endo Endo: Negative for fatigue Cardiology Exam Const Appearance: cooperative, healthy appearing, no acute distress, well developed and well groomed Nutritional Appearance: average body habitus and well nourished Orientation: alert, awake and oriented x3 Head Head: normal to inspection, normocephalic and atraumatic Ears: hearing grossly normal bilaterally and external ears normal Nose: external nose normal, nares normal, nasal mucous membranes and turbinates normal, septum normal and no nasal discharge Face and Sinus: face symmetric Mouth: oral mucosae normal, tongue normal, oropharynx normal and moist mucous membranes Teeth and gingiva: dentition normal Throat: posterior oropharynx normal, tonsils normal and uvula midline Eyes General: appearance normal, both eyes and all related structures Eyelids: eyelids normal Conjunctivae: conjunctivae normal Pupils: PERRL, normal by confrontation and accommodation normal EOM: EOM intact bilaterally Neck Neck: normal visual inspection, trachea midline and no JVD (more content not included)... Normal [facility] Coronary Angiography CTon Coronary Angiography CT [facility] [address] [place] [address] 11/02/24 1707 MR#: [id number] Acct: [id number] Name: RANGEL CASTRO Jr. Rep #: [id number] : 1965 59 From: Jean Green MD PCP: Dr. Luther Tavera DO Status:REG CLI Y Location: CT Calcium Scoring Date of Study:: 11/02/24 Indications Indications: Family history Coronary Calcium Scoring: High-resolution Computed Tomographic imaging of the chest was performed on [11-25], with particular attention paid to the coronary arteries. Images from the examination were analyzed for the presence and extent of coronary artery calcification , using coronary calcium quantification software. The patient tolerated the procedure well and there were no complications. The results of the coronary calcification analysis are provided below. Findings Coronary Artery Left Main (LM): 0.79 Left Anterior Descending (LAD): 65 Left Circumflex (LCX): 3.5 Right Coronary Artery (RCA): 103 Total Agatston Score: 172.29 Percentile Rankin-75th percentile Calcium Scoring Interpretation: Different methods to categorize the overall amount of coronary plaque. Overall amount CAC SIS Visual of coronary plaque P1 Mild -100 <2 1-2 vessels with mild amount of plaque P2 Moderate 101-300 3-4 1-2 vessels with moderate amount, 3 vessels with mild amount of plaque P3 Severe 301-999 5-7 3 vessels with moderate amount, 1 vessel with severe amount of plaque P4 Extensive >1000 >8 2-3 vessels with severe amount of plaque Calcium Score: Mild: 1-2 vessels w/mild amount of plaque Conclusion: Mild atherosclerotic plaquing noted 11/02/24 1709 Date Jean Green MD Cosigner Signature (if applicable): Date CC: Dr. Jean Green MD; Dr. Luther Tavera, DO Signed Normal [facility] Limited Chest CT Cardiac Onl yon 11-02-[address] Cardiac Only [facility] [address] [place] [address] Cardiac Only MR#: [id number] Acct: [id number] Name: RANGEL CASTRO JrNadia Rep #: [id number] : 1965 M 59 From: Tim marinelli MD PCP: Dr. Luther Tavera, DO Status: REG CLI Study: Limited Chest CT Cardiac Only Date of Exam: Exam# [id number] Ordering Dr: Luther Tavera DO PROCEDURE: LIMITED CHEST CT CARDIAC ONLY REASON FOR EXAM: FAMILY HISTORY HEART DISEASE TECHNIQUE: Supine chest CT without contrast, high resolution CT (HRCT) protocol. One or more dose reduction techniques were used (e.g., Automated exposure control, adjustment of the mA and/or kV according to patient size, use of iterative reconstruction technique). COMPARISON: None FINDINGS: Hardware: None Lymph nodes: Small benign-appearing mediastinal lymph nodes. Heart and Vasculature: Normal heart size. No pericardial effusion. Coronary Artery Calcifications: Present Lungs and Airways: The lungs are normally expanded and clear. No septal thickening nodules or abnormal pulmonary opacities. Pleura: Unremarkable Upper Abdomen: Unremarkable Bones: Unremarkable CT/Limited Chest CT Cardiac Only IMPRESSION: Coronary artery calcification (CAC) is is present Reading Location: [place] [address] CC: Dr. Luther Tavera DO Stock Tracer: Signed Normal [facility] Internal Medicine Office Vis karis 07-12-2024 Internal Medicine Office Visit [facility] [address] [place] [address] [place] [address] OFFICE VISIT Date of Service: 07/12/24 MR#: [id number] Acct: [id number] Name: RANGEL CASTRO JrNadia Rep #: [id number] : 1965 Provider: Dr. Luther mariee DO Age/Sex: 58/M Location: [facility] [place] Status: Signed Intake Vital Signs 09/08/23 16:09 06/24/24 11:07 07/12/24 16:19 Height 5 ft 10 in 5 ft 10 in 5 ft 10 in Weight: 208 lb BMI 29.8 BP 116/70 Blood Pressure Location Lt brachial Position Sitting Respiration 16 Pulse 52 L Pulse Source Monitor Temp 97.2 F L Temp Source Temporal Pulse Oximetry (%) 98 Oxygen Delivery Method room air Intake Visit Reasons: 1 Y FU Chief Complaint: Physical exam [employer] Service Helper Required: No Is patient in pain?: No Allergies No Known Allergies Allergy (Verified 07/12/24 16:13) Medications ???Medication ???Instructions ???Recorded ???Confirmed ???Type sildenafil 100 mg tablet 100 mg PO DAILY PRN sexual 07/12/24 07/12/24 Rx activity #20 tabs Nurse's Note: needs a refill declines flu vaccine. [facility] Medical History (Updated 07/12/24 @ 16:[address] Luther Tavera, DO) Erectile dysfunction GERD (gastroesophageal reflux disease) Meniere disease Arthritis Hiatal hernia with gastroesophageal reflux disease and esophagitis Chest pain Chronic cough Chest discomfort Dizziness Bradycardia, sinus Surgical History History of shoulder surgery History of vasectomy History of elbow surgery ( 10/2014) Family History Father Heart disease, Onset Age: 54 Grandfather Heart disease, Onset Age: 38 Uncle CVA (cerebral vascular accident) Uncle CVA (cerebral vascular accident) Social History adopted: No household members: spouse number of children: 2 service: No current occupational status: employed 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 pets and animals: No sexually active: Yes do you think of yourself as: straight/heterosexual current gender identity: male Smoking Status: Never smoker alcohol intake: current alcohol intake frequency: a few times a week Alcohol type: beer, wine and hard liquor substance use type: does not use caffeine: Yes (6) Type: coffee what type of physical activity do you participate in: running and weight training frequency: 5-6 times per week do you feel safe at home: Yes HPI HPI Chief Complaint: Physical exam Details: RANGEL CASTRO is a 58 M who presents to the office today for a physical exam. He has a large number of problems. He is concerned because he still has problems with his piriformis syndrome. He has a corn on his foot which she is constantly treating. He has a constant upset stomach with episodic diarrhea and no constipation. He has chest pains that are not exertional but sometimes prevent him from being active because he is worried about sudden cardiac as his father in the age of 54. ROS Const Constitutional: No body ache, chills, excessive sweating, fatigue, fever(s), frequent falls, headache(s), snoring, weakness, sleep problems or change in appetite Eyes Eyes: No blurry vision, change in vision, eye pain or Light sensitivity ENT ENT: No abnormal hearing, ear or mastoid pain, tinnitus, nasal congestion, headache(s), neck pain or sore throat Resp Respiratory: No cough, shortness of breath, snoring or wheezing Cardio Cardiology: No chest pain at rest, chest pain with exertion, excessive sweating, shortness of breath, dyspnea on exertion, lightheadedness, orthopnea or palpitations Gastro GI: No abdominal pain, change in bowel habits, constipation, cramping, diarrhea, nausea/dyspepsia or vomiting Genitourinary Male: No burning urination, painful urination, urinary incontinence or urinary frequency Musc Musculoskeletal: No abnormal gait, joint pain, back pain, limited range of motion, neck pain or numbness Skin Skin: No dry skin, redness, lesions, itchy eyes, rash or wounds Neuro Neurology: No abnormal gait, abnormal hearing, weakness, frequent falls, headache(s), memory loss or numbness Psych Psychiatric: No anxiety, No change in appetite, No depression, No memory loss and No Thoughts of harming yourself/Others Endo Endocrine: No cold intolerance, excessive sweating, fatigue, flushing, heat intolerance, increased thirst/drinking or increased hunger Aller/Imm Allergy/Immunologic: No itchy eyes, seasonal allergy symptoms, hives or wheezing Juni/Lymp Hematologic/Lymphatic : No easy bleeding, easy bruising, enlarged lymph nodes or other Exam Const General: cooperative, comfortable and no a (more content not included)... Normal [facility] Lumbar Spine 2 or 3 Viewson 06-24-2024 Lumbar Spine 2 or 3 Views [facility] [address] [place] [address] Lumbar Spine 2 or 3 Views MR#: [id number] Acct: [id number] Name: MATTHEWRANGEL JHONNY Rep #: [id number] : 1965 M 58 From: Haroon Ramirez MD PCP: Dr. Luther Tavera, Status: DEP AMB Study: Lumbar Spine 2 or 3 Views Date of Exam: Exam# [id number] Ordering Dr: Karan Ta [id number] STUDY: X-RAY - LUMBAR SPINE REASON FOR EXAM: Male, 58 years old. Pain TECHNIQUE: 2 view(s) of the lumbar spine were obtained. COMPARISON: None FINDINGS: Normal lumbar lordosis. There is no substantial scoliosis. There is a normal alignment of the vertebrae. Normal vertebral bodies. There is mild endplate spurring at L1-2 and L4-5. Normal disc space heights. There is no demonstrated fracture. There is atherosclerotic calcification of the abdominal aorta without a demonstrated aneurysm. RAD/Lumbar Spine 2 or 3 Views IMPRESSION: Mild degenerative change. Electronically Signed: Haroon Ramirez MD at 14:32 EST , CC: Dr. Luther Tavera, DO; MAX Alan Stock Tracer: Signed Normal [facility] Internal Medicine Office Vis karis 06-15-2024 Internal Medicine Office Visit [facility] [address] [place] [address] [address] [place] [address] OFFICE VISIT Date of Service: 06/15/24 MR#: [id number] Acct: [id number] Name: RANGEL CASTRO Jr. Rep #: [id number] : 1965 Provider: MAX Alan Age/Sex: 58/M Location: [facility] [place] Status: Signed Intake Vital Signs 09/08/23 16:09 06/15/24 15:02 Height 5 ft 10 in 5 ft 10 in Weight: 205 lb 205 lb 4 oz BMI 29.4 29.4 BP 130/86 H 120/60 Blood Pressure Location Lt brachial Lt brachial Position Sitting Sitting Respiration 16 16 Pulse 60 78 Pulse Source Monitor Monitor Temp 97.8 F 97.7 F L Temp Source Temporal Temporal Pulse Oximetry (%) 97 98 Oxygen Delivery Method room air room air Intake Visit Reasons: ACUTE HIP PAIN Chief Complaint: hip pain [employer] Required: No Accompanied by: Self Is patient in pain?: Yes (left hip ) Allergies No Known Allergies Allergy (Verified 06/15/24 14:56) Medications ???Medication ???Instructions ???Recorded ???Confirmed ???Type sildenafil 100 mg tablet 100 mg PO DAILY PRN sexual 09/01/23 06/15/24 Rx activity #20 tabs prednisone 10 mg tablet 10 mg PO DIRECTED #30 tabs 06/15/24 06/15/24 Rx PFSH Medical History GERD (gastroesophageal reflux disease) Meniere disease Arthritis Hiatal hernia with gastroesophageal reflux disease and esophagitis Chest pain Chronic cough Chest discomfort Dizziness Bradycardia, sinus Surgical History History of shoulder surgery History of vasectomy History of elbow surgery ( 10/2014) Family History Father Heart disease, Onset Age: 54 Grandfather Heart disease, Onset Age: 38 Uncle CVA (cerebral vascular accident) Uncle CVA (cerebral vascular accident) Social History Smoking Status: Never smoker alcohol intake: current alcohol intake frequency: a few times a week Alcohol type: beer, wine and hard liquor substance use type: does not use caffeine: Yes Type: coffee Number of servings: 4 what type of physical activity do you participate in: running and weight training frequency: daily HPI HPI Chief Complaint: hip pain Details: RANGEL CASTRO, is a 58 M who presents to the office today for left hip pain. Patient states that the pains have been occurring for the past year or greater. There was no injury or acute inciting incident that caused the abrupt onset of the pains. He states that he has been seeing chiropractor over the past year but states that it hasn't really helped. he states that the pains are pretty random. He states that sometimes if he sits for a prolonged period then it it hurts to get up and move and then sometimes this hurts if he lies down on the left side such as sleeping on that side. HE has tried icing and heating toward the beginning of this and has taken some NSAIDS. He states that they did not help him much at all. Ibuprofen does help a litle but tries to avoid it. He states that he has actually not exercised the past week and states that it has felt better than it has in a very long time. Patient states that sometimes the pains actually move into the groin and will even go as far as in to the lateral lower leg. ROS Const Constitutional: No body ache, chills, excessive sweating, fatigue, fever(s), frequent falls, headache(s), snoring, weakness or change in appetite Eyes Eyes: No blurry vision, change in vision, eye pain or Light sensitivity ENT ENT: No abnormal hearing, ear or mastoid pain, tinnitus, nasal congestion, headache(s), neck pain or sore throat Resp Respiratory: No cough, shortness of breath, snoring or wheezing Cardio Cardiology: No chest pain at rest, chest pain with exertion, excessive sweating, dyspnea on exertion, lightheadedness, orthopnea or palpitations Gastro GI: No abdominal pain, change in bowel habits, constipation, cramping, diarrhea, nausea/dyspepsia or vomiting Genitourinary Male: No burning urination, painful urination, urinary incontinence or urinary frequency Musc Musculoskeletal: No abnormal gait, joint pain, back pain, limited range of motion, muscle weakness, neck pain or numbness Skin Skin: No dry skin, redness, lesions, itchy eyes, rash or wounds Neuro Neurology: No abnormal gait, abnormal hearing, weakness, frequent falls, headache(s), memory loss or numbness Psych Psychiatric: No anxiety, No change in appetite, No depression, No memory loss and No Thoughts of harming yourself/Others Endo Endocrine: No cold intolerance, excessive sweating, fatigue, flushing, heat intolerance, increased thirst/drinking or increased hunger Aller/Imm Allergy/Immunologic: No itc (more content not included)... Normal [facility] Basophil percentageOrdered B y: Luther Tavera on 07-09-2023 Bilirubin [Mass/Vol] 0.80 mg/dL 0.20-1.00 [facility] Comment on above: For patients on eltr ombopag therapy, use of Dimension [place] TBIL is not recommended. Chloride [Moles/Vol] 98 mmol/L 98-107 [facility] Glucose [Mass/Vol] 103 mg/dL 74-106 [facility] Comment on above: Fasting Glucose resu lt from 100 to 125 mg/dL suggests IMPAIRED HOMEOSTASIS per A.D.A. criteria. Potassium [Moles/Vol] 4.0 mmol/L 3.5-5.1 [facility] Protein [Mass/Vol] 7.1 g/dL 6.4-8.2 [facility] Sodium [Moles/Vol] 133 mmol/L 136-145 [facility] Laboratory - Chemistry and C hemistry - challengeOrdered By: Luther Liang on 07-09-2023 ALP [Catalytic activity/Vol] 49 U/L 45-117 [facility] ALT [Catalytic activity/Vol] 30 U/L 16-61 [facility] CO2 [Moles/Vol] 29.0 mmol/L 21.0-32.0 [facility] Globulin (S) [Mass/Vol] 3.0 g/dL 2.2-4.2 [facility] Urea nitrogen/Creatinine [Mass ratio] 12.4 mg/mg 10-20 [facility] No Panel InformationOrdered By: Luther Liang on 07-09-2023 Estimated GFR (MDRD) Amer 103 mL/min >60 [facility] Comment on above: GFR Calc Estimated GFR (MDRD) Non-Af Amer 85 mL/min >60 [facility] Comment on above: Non- GFR Calc Prostate Specific Antigen Total 0.22 ng/mL 0.0-4.0 [facility] Comment on above: This test was perfor med using the TPSA assay method for the[employer] chemistry system. Values obtained with differentassay methods cannot be used interchangably.When changing PSA assays in the course of monitoring apatient, additional sequential testing should be carriedout to confirm baseline values. Serum or plasma albumin abram urement (mass/volume)Ordered By: Luther Tavera on 07-09-2023 Albumin [Mass/Vol] 4.1 g/dL 3.2-5.0 [facility] Serum or plasma albumin/glob ulin mass ratioOrdered By: Luther Tavera on 07-09-2023 Albumin/Globulin [Mass ratio] 1.4 {ratio} 0.9-2.4 [facility] Serum or plasma calcium abram urement (mass/volume)Ordered By: Luther Tavera on 07-09-2023 Calcium [Mass/Vol] 9.0 mg/dL 8.5-10.1 [facility] Serum or plasma creatinine m easurement (mass/volume)Ordered By: Luther Tavera on 07-09-2023 Creatinine [Mass/Vol] 0.97 mg/dL 0.70-1.30 [facility] Comment on above: The validity of the calculated GFR & GFRAA in patients over 70 years has not been determined. Clinical correlation is essential. Serum or plasma urea nitroge n measurement (mass/volume)Ordered By: Luther Tavera on 07-09-2023 Urea nitrogen [Mass/Vol] 12 mg/dL 7-18 [facility] Thin prep Papanicolaou smear with manual screeningOrdered By: Luthermonika Tavera on 07-09-2023 Thin prep Papanicolaou smear with manual screening 39 U/L 15-37 [facility] Thin prep Papanicolaou smear with manual screening 6 5-15 [facility] Absolute lymphocyte counton 06-18-2022 Lymphocytes Auto (Unsp spec) [#/Vol] 1.60 10*3/uL 0.83-4.51 [facility] Work Phone: Basophil percentageon 2021 Basophil percentage 0 SEEN /hpf 0-5 [facility] Work Phone: Basophils/100 WBC (Bld) 1.3 % 0-1 [facility] Work Phone: Chloride [Moles/Vol] 103 mmol/L 98-107 [facility]: Eosinophils/100 WBC (Bld) 3.5 % 0-5 [facility] Work Phone: Glucose [Mass/Vol] 90 mg/dL 74-106 [facility] Work Phone: Neutrophils (Bld) [#/Vol] 2.2 10*3/uL 2.0-7.7 [facility] Work Phone: Neutrophils/100 WBC (Bld) 48.5 % 47-70 [facility] Work Phone: Potassium [Moles/Vol] 4.2 mmol/L 3.5-5.1 [facility] Work Phone: Sodium [Moles/Vol] 138 mmol/L 136-145 [facility] Work Phone: WBC (Bld) [#/Vol] 4.6 10*3/uL 4.4-11.0 [facility] Work Phone: Bilirubin Test strip Ql (U)o n 06-18-2022 Bilirubin Ql (U) Negative Negative [facility] Work Phone: Blood erythrocytes count (nu mber/volume)on 06-18-2022 RBC (Bld) [#/Vol] 4.28 10*6/uL 4.6-6.2 [facility] Work Phone: Blood hemoglobin measurement (mass/volume)on 06-18-2022 Hemoglobin (Bld) [Mass/Vol] 13.8 g/dL 13.0-16.5 [facility] Work Phone: Blood lymphocytes/100 leukoc yteson 06-18-2022 Lymphocytes/100 WBC (Bld) 34.8 % 19-41 [facility] Work Phone: Blood monocytes/100 leukocyt eson 06-18-2022 Monocytes/100 WBC (Bld) 11.7 % 0-10 [facility] Work Phone: Blood platelet mean volumeon 06-18-2022 Platelet mean volume (Bld) [Entitic vol] 9.7 fL 6.2-12.0 [facility] Work Phone: Determination of erythrocyte mean corpuscular volume (MCV)on 06-18-2022 MCV (RBC) [Entitic vol] 95.1 fL 80-94 [facility] Work Phone: Hematocrit Auto (Bld) [Volum e fraction]on 06-18-2022 Hematocrit (Bld) [Volume fraction] 40.7 % 40-54 [facility] Work Phone: Ketones Test strip Ql (U)on 06-18-2022 Ketones Ql (U) Negative Negative [facility] Work Phone: Laboratory - Chemistry and C hemistry - challengeon 06-18-2022 CO2 [Moles/Vol] 31.0 mmol/L 21.0-32.0 [facility] Work Phone: Urea nitrogen/Creatinine [Mass ratio] 12.3 mg/mg 10-20 [facility] Work Phone: Laboratory - Hematology and Cell countson 06-18-2022 Erythrocyte distribution width (RBC) [Entitic vol] 41.0 fL 35.1-43.9 [facility] Work Phone: Erythrocyte distribution width (RBC) [Ratio] 11.9 % 11.6-14.6 [facility] Work Phone: Immature granulocytes/100 WBC (Bld) 0.200 % 0.0-0.9 [facility] Work Phone: Comment on above: IG% - Immature Granu locytes (promyelocytes, myelocytes and metamyelocytes) > 1% indicates that a LEFT SHIFT is Present. MCH (RBC) [Entitic mass] 32.2 pg 27.0-32.0 [facility] Work Phone: Nucleated RBC/100 WBC (Bld) [Ratio] 0 % 0-5 [facility] Work Phone: MCHC Auto (RBC) [Mass/Vol]on 06-18-2022 MCHC (RBC) [Mass/Vol] 33.9 g/dL 32-36 [facility] Work Phone: Mucus LM Ql (Urine sed)on Mucus Ql (Urine sed) 0 SEEN /hpf [facility] Work Phone: Nitrite Test strip Ql (U)on 06-18-2022 Nitrite Ql (U) Negative Negative [facility] Work Phone: No Panel Informationon 06-18 Estimated GFR (MDRD) Amer 103 mL/min >60 [facility] Work Phone: Comment on above: GFR Calc Estimated GFR (MDRD) Non-Af Amer 85 mL/min >60 [facility] Work Phone: Comment on above: Non- GFR Calc Prostate Specific Antigen Total 0.21 ng/mL 0.0-4.0 [facility] Work Phone: Comment on above: This test was perfor med using the TPSA assay method for [employer] chemistry system. Values obtained with differentassay methods cannot be used interchangably.When changing PSA assays in the course of monitoring apatient, additional sequential testing should be carriedout to confirm baseline values. Platelets bldon 06-18-2022 Platelets (Bld) [#/Vol] 234 10*3/uL 150-450 [facility] Work Phone: Protein Test strip Ql (U)on 06-18-2022 Protein Ql (U) Negative Negative [facility] Work Phone: Serum or plasma calcium abram urement (mass/volume)on 06-18-2022 Calcium [Mass/Vol] 9.6 mg/dL 8.5-10.1 [facility] Work Phone: Serum or plasma creatinine m easurement (mass/volume)on 06-18-2022 Creatinine [Mass/Vol] 0.97 mg/dL 0.70-1.30 [facility] Work Phone: Comment on above: The validity of the calculated GFR & GFRAA in patients over 70 years has not been determined. Clinical correlation is essential. Serum or plasma urea nitroge n measurement (mass/volume)on 06-18-2022 Urea nitrogen [Mass/Vol] 12 mg/dL 7-18 [facility] Work Phone: Squamous epithelial cells de tection in urine sediment by light microscopyon 06-18-2022 Epithelial cells.squamous LM Ql (Urine sed) 0 SEEN /hpf 0-5 [facility] Work Phone: Thin prep Papanicolaou smear with manual screeningon 06-18-2022 Thin prep Papanicolaou smear with manual screening 4 5-15 [facility] Work Phone: Urine blood detectionon 06-03 RBC Ql (U) Negative Negative [facility] Work Phone: RBC Ql (U) 0 SEEN /hpf 0-5 [facility] Work Phone: Urine clarityon 06-18-2022 Clarity (U) Clear Clear [facility] Work Phone: Urine color determinationon 06-18-2022 Color (U) Yellow Yellow [facility] Work Phone: Urine glucose detectionon Glucose Ql (U) Normal mg/dl Normal [facility] Work Phone: Urine leukocyte esterase det ection by dipstickon 06-18-2022 Leukocyte esterase Test strip Ql (U) Negative Negative [facility] Work Phone: Urine pHon 06-18-2022 pH (U) 7.0 [pH] 5.0 - 8.0 [facility] Work Phone: Urine sediment bacteria coun t by microscopy (number/high power field)on 06-18-2022 Bacteria LM.HPF (Urine sed) [#/Area] 0 /[HPF] None Seen [facility] Work Phone: Urine specific gravity measu rementon 06-18-2022 Specific gravity (U) [Rel density] 1.010 1.002-1.030 [facility] Work Phone: Urobilinogen Auto test strip Ql (U)on 06-18-2022 Urobilinogen Ql (U) Normal mg/dl Normal [facility] Work Phone: .Auto Diffon 09-19-2019 Ammonia (P) [Mass/Vol] 0.50 10 3/mcL Normal 0.15-1.00 [facility] ([place]) Comment on above: Performed By: #### C BCIDA, ANEU #### [place] [address] #### BMP, GFR #### [address] [address] Basophils (Bld) [#/Vol] 0.00 10 3/mcL Normal 0.00-0.19 [facility] ([place]) Comment on above: Performed By: #### IDA ZAPATA, ANEU #### [place] [address] #### BMP, GFR #### [address] [address] Basophils/100 WBC (Bld) 1.0 % Normal 0.0-2.5 [facility] ([place]) Comment on above: Performed By: #### C IDA BAUGH, ANEU #### [address] [address] #### BMP, GFR #### [address] [address] Eosinophils (Bld) [#/Vol] 0.20 10 3/mcL Normal 0.00-0.40 [facility] ([place]) Comment on above: Performed By: #### C BC, ADIFF, ANEU #### [place] [address] #### BMP, GFR #### [address] [address] Eosinophils/100 WBC (Bld) 3.7 % Normal 0.0-7.0 [facility] ([place]) Comment on above: Performed By: #### C BCRADHAIFF, ANEU #### [address] [address] #### BMP, GFR #### [address] [address] Lymphocytes (Bld) [#/Vol] 1.60 10 3/mcL Normal 0.77-3.85 [facility] ([place]) Comment on above: Performed By: #### C BC, ADIFF, ANEU #### [address] [address] #### BMP, GFR #### [address] [address] Lymphocytes/100 WBC (Bld) 34.9 % Normal 10.0-50.0 [facility] ([place]) Comment on above: Performed By: #### C BC, ADIFF, ANEU #### [address] [address] #### BMP, GFR #### [address] [address] Monocytes/100 WBC (Bld) 11.3 % Normal 1.7-13.0 [facility] ([place]) Comment on above: Performed By: #### C BC, ADIFF, ANEU #### [address] [address] #### BMP, GFR #### [address] [address] Neutrophils/100 WBC (Bld) 49.1 % Normal 37.0-80.0 [facility] ([place]) Comment on above: Performed By: #### C BC, ADIFF, ANEU #### [address] [address] #### BMP, GFR #### [address] [address] .GFRon 09-19-2019 GFR 94 ml/min/1.73sqm Normal [facility] ([place]) Comment on above: Result Comment: GFR Population mean for , Non- Americans Ages 20-29 = 116 mL/min/1.73 sq.m. Ages 30-39 = 107 mL/min/1.73 sq.m. Ages 40-49 = 99 mL/min/1.73 sq.m. Ages 50-59 = 93 mL/min/1.73 sq.m. Ages 60-69 = 85 mL/min/1.73 sq.m. Ages 70+ = 75 mL/min/1.73 sq.m. Chronic Kidney Disease: Less than 60 mL/min/1.73 square meters End Stage Renal Disease: Less than 15 mL/min/1.73 square meters Performed By: #### C BCIDA, ANEU #### [address] [address] #### BMP, GFR #### [address] [address] GFR Non- 78 ml/min/1.73sqm Normal [facility] ([place]) Comment on above: Result Comment: GFR Population mean for , Non- Americans Ages 20-29 = 116 mL/min/1.73 sq.m. Ages 30-39 = 107 mL/min/1.73 sq.m. Ages 40-49 = 99 mL/min/1.73 sq.m. Ages 50-59 = 93 mL/min/1.73 sq.m. Ages 60-69 = 85 mL/min/1.73 sq.m. Ages 70+ = 75 mL/min/1.73 sq.m. Chronic Kidney Disease: Less than 60 mL/min/1.73 square meters End Stage Renal Disease: Less than 15 mL/min/1.73 square meters Performed By: #### C IDA BAUGH, ANEU #### [address] [address] #### BMP, GFR #### [address] [address] .NEUABSon 09-19-2019 Neutrophils (Bld) [#/Vol] 2.30 10 3/mcL Low 2.85-6.16 [facility] ([place]) Comment on above: Performed By: #### C IDA BAUGH, ANEU #### [address] [address] #### BMP, GFR #### [address] [address] BMPon 09-19-2019 Calcium [Mass/Vol] 9.6 mg/dL Normal 8.4-10.2 [facility] ([place]) Comment on above: Performed By: #### C BC, ADIFF, ANEU #### [address] [address] #### BMP, GFR #### [address] [address] Chloride [Moles/Vol] 101 mmol/L Normal 98-107 [facility] ([place]) Comment on above: Performed By: #### C BC, ADIFF, ANEU #### [address] [address] #### BMP, GFR #### [place] [address] CO2 [Moles/Vol] 33 mmol/L High 22-29 [facility] ([place]) Comment on above: Performed By: #### C BC, ADIFF, ANEU #### [address] [address] #### BMP, GFR #### [address] [address] Creatinine [Mass/Vol] 1.01 mg/dL Normal 0.70-1.30 [facility] ([place]) Comment on above: Performed By: #### C BC, ADIFF, ANEU #### [address] [address] #### BMP, GFR #### [address] [address] Electrolyte Balance 6.0 mEq/L Normal [facility] ([place]) Comment on above: Performed By: #### C BC, ADIFF, ANEU #### [address] [address] #### BMP, GFR #### [address] [address] Glucose [Mass/Vol] 105 mg/dL Normal 70-105 [facility] ([place]) Comment on above: Performed By: #### C BC, ADIFF, ANEU #### [address] [address] #### BMP, GFR #### [address] [address] Potassium [Moles/Vol] 4.5 mmol/L Normal 3.5-5.1 [facility] ([place]) Comment on above: Performed By: #### C BC, ADIFF, ANEU #### [address] [address] #### BMP, GFR #### [address] [address] Sodium [Moles/Vol] 140 mmol/L Normal 136-145 [facility] ([place]) Comment on above: Performed By: #### C BC, ADIFF, ANEU #### [address] [address] #### BMP, GFR #### [address] [address] Urea nitrogen [Mass/Vol] 14 mg/dL Normal 7-18 [facility] ([place]) Comment on above: Performed By: #### C BC, ADIFF, ANEU #### [address] [address] #### BMP, GFR #### [address] [address] Urea nitrogen/Creatinine [Mass ratio] 14 ratio Normal 7-27 [facility] ([place]) Comment on above: Performed By: #### C BC, ADIFF, ANEU #### [address] [address] #### BMP, GFR #### [address] [address] CBCon 09-19-2019 Erythrocyte distribution width (RBC) [Ratio] 12.7 % Normal 11.5-14.5 [facility] ([place]) Comment on above: Performed By: #### C BC, ADIFF, ANEU #### [address] [address] #### BMP, GFR #### [address] [address] Hematocrit (Bld) [Volume fraction] 41.4 % Low 42.0-52.0 [facility] ([place]) Comment on above: Performed By: #### C IDA BAUGH, ANEU #### [address] [address] #### BMP, GFR #### [address] [address] Hemoglobin (Bld) [Mass/Vol] 14.2 G/dL Normal 14.0-18.0 [facility] ([place]) Comment on above: Performed By: #### C IDA BAUGH, ANEU #### [place] [address] #### BMP, GFR #### [place] [address] MCH (RBC) [Entitic mass] 33.2 pg High 27.0-31.2 [facility] ([place]) Comment on above: Performed By: #### C IDA BAUGH, ANEU #### [place] [address] #### BMP, GFR #### [place] [address] MCHC (RBC) [Mass/Vol] 34.2 G/dL Normal 31.8-35.4 [facility] ([place]) Comment on above: Performed By: #### C IDA BAUGH, ANEU #### [place] [address] #### BMP, GFR #### [place] [address] MCV (RBC) [Entitic vol] 97.0 fL High 80.0-94.0 [facility] ([place]) Comment on above: Performed By: #### C IDA BAUGH, ANEU #### [place] [address] #### BMP, GFR #### [place] [address] Platelet mean volume (Bld) [Entitic vol] 8.2 fL Normal 7.4-10.4 [facility] ([place]) Comment on above: Performed By: #### C BC, ADIFF, ANEU #### [address] [address] #### BMP, GFR #### [facility] [address] [place] [address] Platelets (Bld) [#/Vol] 217 10 3/mcL Normal 130-400 [facility] ([place]) Comment on above: Performed By: #### C BC, ADIFF, ANEU #### [address] [address] #### BMP, GFR #### [address] [address] RBC (Bld) [#/Vol] 4.27 10 6/mcL Normal 4.04-6.13 [facility] ([place]) Comment on above: Performed By: #### C BC, ADIFF, ANEU #### [address] [address] #### BMP, GFR #### [facility] [address] [place] [address] WBC (Bld) [#/Vol] 4.70 10 3/mcL Normal 4.60-10.80 [facility] ([place]) Comment on above: Performed By: #### C BC, ADIFF, ANEU #### [address] [address] #### BMP, GFR #### [address] [address] Office Visit: Pulmonary vivu hilary 04-01-2017 Fall risk assessment No [facility] Work Phone: Protein mass conc Done [facility] Work Phone: Tobacco smoking status NHIS Never [facility] Work Phone: Tobacco smoking status WIIS Never smoker [facility] Work Phone: Office Visiton 09-29-2016 Protein mass conc Done [facility] Work Phone: Clinical Lists Update: Prelo assistant manager bilingual 09-24-2016 Left ventricular Ejection fraction 65 % [facility] Work Phone: Office Visit: Follow Up Mohini greta 06-11-2016 Tobacco smoking status NHIS Never [facility] Work Phone: Tobacco smoking status NHIS Never smoker [facility] Work Phone: External Other: Preferred Me thod of Contacton 08-30-2015 methcontact phone [facility] Work Phone: Office Visiton 08-30-2015 cardiac risk group B [facility] Work Phone: General cardiovascular disease 10Y risk [#] Barbie.D'Agostanais 4 % [facility] Work Phone: Replaced Document: Luis Enrique E CG Observationson 08-30-2015 EKG QRS axis 23 deg [facility] Work Phone: Interpretation Marked sinus Bradycardia BORDERLINE RHYTHM [facility] Work Phone: P [place] 28 deg [facility] Work Phone: TX Interval 180 ms [facility] Work Phone: QRS Duration 106 ms [facility] Work Phone: QT Interval new path ms [facility] Work Phone: QTc Jarrell 407 ms [facility] Work Phone: T [place] 23 deg [facility] Work Phone: Clinical Lists Update: Prelo assistant manager bilingual 08-17-2015 Albumin mass conc 4.4 g/dL [facility] [place] Work Phone: ALT enzyme act/vol 28 U/L [facility] [place] Work Phone: AST enzyme act/vol 28 U/L [facility] [place] Work Phone: Calcium mass conc 9.5 mg/dL [facility] [place] Work Phone: Chloride molar conc 98 mmol/L [facility] Work Phone: Cholesterol in HDL mass conc 79 mg/dL [facility] Work Phone: Cholesterol in LDL mass conc 141 mg/dL [facility] [place] Work Phone: Cholesterol mass conc 227 mg/dL [facility] [place] Work Phone: Creatinine mass conc 1.2 mg/dL [facility] Work Phone: Globulin mass conc (S) 2.8 g/dL [facility] [place] Work Phone: Hematocrit Volume Fraction (Bld) 42.9 % [facility] Work Phone: Hemoglobin mass conc (Bld) 14.1 g/dL [facility] [place] Work Phone: Platelets #/vol (Bld) 237 10*3/mm3 [facility] Work Phone: Potassium molar conc 4.2 mmol/L [facility] [place] Work Phone: Protein mass conc 7.2 g/dL [facility] [place] Work Phone: Sodium molar conc 137 mmol/L [facility] Work Phone: Thyrotropin Qn 2.56 u[iU]/mL [facility] [place] Work Phone: Triglyceride mass conc 36 mg/dL [facility] Work Phone: Urea nitrogen mass conc 15 mg/dL [facility] [place] Work Phone: Urea nitrogen/Creatinine mass ratio 12.5 mg/mg [facility] Work Phone: WBC #/vol (Bld) 4.5 10*3/uL [facility] [place] Work Phone: Vital Signs Date Time Vital Sign Value Performing Clinician Luis herzog 12-21-2024 15:27-0400 Body height 177.[address] Luther Tavera DO Work Phone: [facility] 12-21-2024 15:27-0400 Body mass index (BMI) [Ratio] 29.1 kg/m2 Dr. Luther Tavera DO Work Phone: [facility] 12-21-2024 15:27-0400 Body weight 92.[address] Luther Tavera DO Work Phone: [facility] 12-21-2024 15:27-0400 Diastolic blood pressure 79 mm[Hg] Dr. Luther Tavera DO Work Phone: [facility] 12-21-2024 15:27-0400 Heart rate 58 /min Dr. Luther Tavera DO Work Phone: [facility] 12-21-2024 15:27-0400 Respiratory rate 16 /min Dr. Luther Tavera DO Work Phone: [facility] 12-21-2024 15:27-0400 Systolic blood pressure 129 mm[Hg] Dr. Luther Tavera DO Work Phone: [facility] 07-12-2024 16:19-0500 Body height 177.[address] Luther Tavera DO Work Phone: [facility] 07-12-2024 16:19-0500 Body mass index (BMI) [Ratio] 29.8 kg/m2 Dr. Luther Tavera DO Work Phone: [facility] 07-12-2024 16:19-0500 Body temperature 97.2 [degF] Dr. Luther Tavera DO Work Phone: [facility] 07-12-2024 16:19-0500 Body weight 94.[address] Luther Tavera DO Work Phone: [facility] 07-12-2024 16:19-0500 Diastolic blood pressure 70 mm[Hg] Dr. Luther Tavera DO Work Phone: [facility] 07-12-2024 16:19-0500 Heart rate 52 /min Dr. Luther Tavera DO Work Phone: [facility] 07-12-2024 16:19-0500 Respiratory rate 16 /min Dr. Luther Tavera DO Work Phone: [facility] 07-12-2024 16:19-0500 SaO2% (BldA) [Mass fraction] 98 % Dr. Luther Tavera DO Work Phone: [facility] 07-12-2024 16:19-0500 Systolic blood pressure 116 mm[Hg] Dr. Luther Tavera DO Work Phone: [facility] 07-01-2023 15:58-0500 Body height 177.[address] Luther Tavera Work Phone: [facility] 07-01-2023 15:58-0500 Body mass index (BMI) [Ratio] 28.8 kg/m2 Dr. Luther Tavera Work Phone: [facility] 07-01-2023 15:58-0500 Body temperature 97.5 [degF] Dr. Luther Tavera Work Phone: [facility] 07-01-2023 15:58-0500 Body weight 91.[address] Luther Tavera Work Phone: [facility] 07-01-2023 15:58-0500 Diastolic blood pressure 70 mm[Hg] Dr. Luther Tavera Work Phone: [facility] 07-01-2023 15:58-0500 Heart rate 70 /min Dr. Luther Tavera Work Phone: [facility] 07-01-2023 15:58-0500 Respiratory rate 16 /min Dr. Luther Tavera Work Phone: [facility] 07-01-2023 15:58-0500 SaO2% (BldA) [Mass fraction] 95 % Dr. Luther Tavera Work Phone: [facility] 07-01-2023 15:58-0500 Systolic blood pressure 116 mm[Hg] Dr. Luther Tavera Work Phone: [facility] 06-18-2022 09:30-0500 Body height 177.[address] Luther Tavera Work Phone: [facility] Work Phone: 06-18-2022 09:30-0500 Body mass index (BMI) [Ratio] 28.3 kg/m2 Dr. Luther Tavera Work Phone: [facility] Work Phone: 06-18-2022 09:30-0500 Body temperature 97.9 [degF] Dr. Luther Tavera Work Phone: [facility] Work Phone: 06-18-2022 09:30-0500 Body weight 89.[address] Luther Tavera Work Phone: [facility] Work Phone: 06-18-2022 09:30-0500 Diastolic blood pressure 84 mm[Hg] Dr. Luther Tavera Work Phone: [facility] Work Phone: 06-18-2022 09:30-0500 Heart rate 60 /min Dr. Luther Tavera Work Phone: [facility] Work Phone: 06-18-2022 09:30-0500 Respiratory rate 16 /min Dr. Luther Tavera Work Phone: [facility] Work Phone: 06-18-2022 09:30-0500 SaO2% (BldA) [Mass fraction] 99 % Dr. Luther Tavera Work Phone: [facility] Work Phone: 06-18-2022 09:30-0500 Systolic blood pressure 118 mm[Hg] Dr. Luther Tavera Work Phone: [facility] Work Phone: 04-01-2017 05:47-0400 BMI (Body Mass Index) 27.89 kg/m2 Khadra Yensho TACTICAL DEBRIEFER OFFICER [facility] Work Phone: 04-01-2017 05:47-0400 Body Temperature 96.3 [degF] Khadra Yensho TACTICAL DEBRIEFER OFFICER [facility] Work Phone: 04-01-2017 05:47-0400 BP Diastolic 79 mm[Hg] Khadra Yensho TACTICAL DEBRIEFER OFFICER [facility] Work Phone: 04-01-2017 05:47-0400 BP Systolic 124 mm[Hg] Khadra Yensho TACTICAL DEBRIEFER OFFICER [facility] Work Phone: 04-01-2017 05:47-0400 Height 180.34 cm Khadra Yensho TACTICAL DEBRIEFER OFFICER [facility] Work Phone: 04-01-2017 05:47-0400 Pulse (Heart Rate) 59 /min Khadra Yensho TACTICAL DEBRIEFER OFFICER [facility] Work Phone: 04-01-2017 05:47-0400 Respiratory Rate 18 /min Khadra Yensho TACTICAL DEBRIEFER OFFICER [facility] Work Phone: 04-01-2017 05:47-0400 Weight 90.72 kg Khadra Yensho TACTICAL DEBRIEFER OFFICER [facility] Work Phone: 09-29-2016 15:01-0500 BMI (Body Mass Index) 29.56 kg/m2 Khadra Yensho TACTICAL DEBRIEFER OFFICER [facility] Work Phone: 09-29-2016 15:01-0500 BP Diastolic 82 mm[Hg] Khadra Yensho TACTICAL DEBRIEFER OFFICER [facility] Work Phone: 09-29-2016 15:01-0500 BP Systolic 120 mm[Hg] Khadra Yensho TACTICAL DEBRIEFER OFFICER [facility] Work Phone: 09-29-2016 15:01-0500 BSA (Body Surface Area) 2.16 m2 Khadra Yensho TACTICAL DEBRIEFER OFFICER [facility] Work Phone: 09-29-2016 15:01-0500 Pulse (Heart Rate) 52 /min Khadra Yensho TACTICAL DEBRIEFER OFFICER [facility] Work Phone: 09-29-2016 15:01-0500 Respiratory Rate 16 /min Khadra Yensho TACTICAL DEBRIEFER OFFICER [facility] Work Phone: 09-29-2016 15:01-0500 Weight 96.16 kg Khadra Yensho TACTICAL DEBRIEFER OFFICER [facility] Work Phone: 06-11-2016 07:22-0500 Body Temperature 97.7 [degF] Khadra Yensho TACTICAL DEBRIEFER OFFICER [facility] Work Phone: 06-11-2016 07:22-0500 Weight 96.36 kg Khadra Yensho TACTICAL DEBRIEFER OFFICER [facility] Work Phone: 03-11-2016 10:29-0400 Height 180.34 cm Khadra Yensho TACTICAL DEBRIEFER OFFICER [facility] Work Phone: 08-30-2015 13:55-0500 Heart rate 48 /min Khadra Yensho TACTICAL DEBRIEFER OFFICER [facility] Work Phone: Encounters Encounter Date Encounter Type Care Provider Facility Start: 12-21-2024 End: 12-21-[address] Jean Green MD -[facility] Work Phone: Start: 12-21-2024 End: 12-21-[address] Luther Tavera DO Work Phone: [facility] Work Phone: Start: 11-02-2024 ambulatory Luther Tavera Facilit y:[facility] Start: 11-02-2024 Non-patient / Non-visit Dr. Francheska MACKAY -[facility] Start: 11-02-2024 End: 11-02-[address] Luther Tavera DO Work Phone: [facility] Work Phone: Start: 11-02-2024 End: 11-02-[address] Luther Booker DO [facility] Work Phone: Start: 11-02-2024 End: 11-02-2024 ambulatory Luther Tavera Facility:[facility] Start: 07-12-2024 End: 07-12-[address] Luther Booker DO -[facility] Work Phone: Start: 07-12-2024 End: 07-12-[address] Luther Booker DO [facility] Start: 07-12-2024 End: 07-12-2024 ambulatory Luther Tavera Facility:[facility] Start: 06-24-2024 End: 06-24-2024 ambulatory Luther Tavera Facility:[facility] Start: 06-15-2024 End: 06-15-2024 ambulatory Luther Tavera Facility:[facility] Start: 07-09-2023 End: 07-09-[address] Luther Tavera Work Phone: [facility] Work Phone: Start: 07-09-2023 End: 07-09-[address] Luther Tavera Work Phone: [facility] [place] Start: 07-01-2023 End: 07-01-[address] Luther Tavera Work Phone: [facility] Work Phone: Start: 06-18-2022 End: 06-18-[address] Luther Tavera Work Phone: [facility] Work Phone: Start: 06-18-2022 End: 06-18-[address] Luther Tavera Work Phone: [facility] Start: 07-03-[address] Luther Tavera Work Phone: [facility] Start: 02-23-[address] Branden Tavera Work Phone: [facility] Procedures Date Procedure Procedure Detail Performing Clinician Start: 11-02-2024 CT angiography of co ronary arteries Dr. Luther Tavera DO Work Phone: Start: 04-01-2017 End: 04-01-2017 Dietary management education, guidance, and counseling hKadra Leonard LPN Start: 09-29-2016 End: 09-29-2016 Dietary management education, guidance, and counseling Khadra Leonard LPN Start: 09-29-2016 End: 09-29-2016 Follow Up Appt 1 year Serjio Damon Start: 09-29-2016 End: 09-29-2016 Follow Up Appt Other Serjio Uribe MD Start: 09-29-2016 End: 09-29-2016 PFM Serjio Uribe MD Start: 03-11-2016 End: 10-03-2016 ISAURO Nation NP Work Phone: Start: 03-11-2016 End: 10-03-2016 Follow Up Appt 3 months Klarissa ambrosio CNP Work Phone: Start: 03-03-2016 End: 06-10-2016 Ct thorax w/o contrast material Anton Jama Work Phone: Start: 09-28-2015 End: 09-28-2015 Follow Up Appt 1 year Nila lewis PA-C Work Phone: Start: 09-28-2015 End: 09-28-2015 PFM Nila Birmingham PA-C Work Phone: Start: 09-13-2015 End: 06-10-2016 Follow Up Appt 6 months Anton Jama Work Phone: Start: 09-13-2015 End: 06-10-2016 Pulmonary Function Test - complete Anton Jama Work Phone: Start: 09-11-2015 End: 09-25-2015 Pulmonary Referral Serjio Uribe MD Start: 08-30-2015 End: 09-25-2015 Ct thorax w/contrast material Serjio Uribe MD Start: 08-30-2015 End: 08-30-2015 Ecg routine ecg w/least 12 lds w/i&r Serjio Uribe MD Start: 08-30-2015 End: 08-30-2015 Follow Up Appt 1 month Serjio Uribe MD Start: 08-30-2015 End: 09-25-2015 Follow Up Appt Other Serjio Uribe MD Start: 08-30-2015 End: 08-30-2015 MMM Serjio Uribe MD Plan of Treatment Date Care Activity Detail Author Start: 12-21-2024 Evaluation of diagnostic study results [facility] Start: 10-05-2017 End: 10-05-2017 Appointment Appointment [facility] Work Phone: Start: 04-01-2017 End: 04-01-2017 Appointment Appointment [facility] Work Phone: Start: 03-03-2017 End: 06-11-2016 Ct thorax w/o contrast material CT Chest without contrast [facility] [place] Work Phone: Start: 09-29-2016 End: 09-29-2016 Follow Up Appt 1 year Follow Up Appt 1 year [facility] [place] Work Phone: Start: 09-29-2016 End: 09-29-2016 Follow Up Appt Other Follow Up Appt Other [facility] [place] Work Phone: Start: 09-29-2016 End: 09-29-2016 PFM PFM [facility] Work Phone: Start: 06-11-2016 End: 06-11-2016 Follow Up Appt 1 year Follow Up Appt 1 year [facility] Work Phone: Start: 03-11-2016 End: 10-03-2016 BWA BWA [facility] Work Phone: Start: 03-11-2016 End: 10-03-2016 Follow Up Appt 3 months Follow Up Appt 3 months [facility] Work Phone: Start: 03-03-2016 End: 06-10-2016 Ct thorax w/o contrast material CT Chest without contrast [facility] Work Phone: Start: 09-28-2015 End: 09-28-2015 Follow Up Appt 1 year Follow Up Appt 1 year [facility] Work Phone: Start: 09-28-2015 End: 09-28-2015 PFM PFM [facility] Work Phone: Start: 09-13-2015 End: 06-10-2016 Follow Up Appt 6 months Follow Up Appt 6 months [facility] Work Phone: Start: 09-13-2015 End: 06-10-2016 Pulmonary Function Test - complete Pulmonary Function Test - complete [facility] Work Phone: Start: 09-11-2015 End: 09-11-2015 Pulmonary Referral Pulmonary Referral Anton Jama, [facility] [place], [address], [place], [address] [facility] Work Phone: Start: 08-30-2015 End: 08-30-2015 Ct thorax w/contrast material CT Chest with Contrast [facility] Work Phone: Start: 08-30-2015 End: 08-30-2015 Ecg routine ecg w/least 12 lds w/i&r EKG (In office) [facility] [place] [employer] Phone: Start: 08-30-2015 End: 08-30-2015 Follow Up Appt 1 month Follow Up Appt 1 month [facility] Work Phone: Start: 08-30-2015 End: 08-30-2015 Follow Up Appt Other Follow Up Appt Other [facility] [place] [employer] Phone: Start: 08-30-2015 End: 08-30-2015 MMM MMM [facility] [facility] Work Phone: Comprehensive metabo lic 1999 panel - Serum or Plasma [facility] Lipid 1996 panel - S al or Plasma [facility] Prostate specific an tigen measurement [facility] Immunizations Immunization Date Immunization Notes Care Provider Fa phuong 01-19-2021 tetanus toxoid, redu noelle diphtheria toxoid, and acellular pertussis vaccine, adsorbed Dr. Luther Tavera Work Phone: [facility] Payers Date Payer Category Payer Self-pay [id number] 2009 Unknown [id number] Unknown [id number] [id number] [id number] Unknown [id number] [id number] [id number] Unknown [id number] [id number] [id number] Unknown [id number] [id number] [id number] Unknown [id number] [id number] [id number] Unknown [id number] 2.16.8 [id number] Social History Date Type Detail Facility Start: 06-18-2022 End: 07-01-2023 Tobacco smoking status NHIS Unknown if ever smoked [facility] Start: 11-27-2020 Non-smoker [facility] Start: 1965 Sex Assigned At Male [facility] Start: 07-12-2024 Tobacco smoking stat us NHIS Never smoked tobacco (finding) [facility] Start: 11-07-2024 Sex Male (finding) [facility] Gender Identity Identifies as ma le gender (finding) [facility] Sexual Orientation Heterosexual (finding) [facility] Radiology Diagnostic study note 11-02-2024 Note Date & Type Note Facility 11-02-2024 Radiology Diagnostic study note [facility] Services [address] [place] [address] 11/02/24 1707 MR#: [id number] Acct: [id number] Name: RANGEL CASTRO JrNadia Rep #:[id number] : 1965 59 From: Jean Green MD PCP: Dr. Luther Tavera, DO Status:FREDA POLO Y Location: CT Calcium Scoring Date of Study:: 11/02/24 Indications Indications: Family history Coronary Calcium Scoring: High-resolution Computed Tomographic imaging of the chest was performed on [11-25], with particular attention paid to the coronary arteries. Images from the examination were analyzed for the presence and extent of coronary artery calcification , using coronary calcium quantification software. The patient tolerated the procedure well and there were no complications. The results of thecoronary calcification analysis are provided below. Findings Coronary Artery Left Main (LM): 0.79 Left Anterior Descending (LAD): 65 Left Circumflex (LCX): 3.5 Right Coronary Artery (RCA): 103 Total Agatston Score: 172.29 Percentile Rankin-75th percentile Calcium Scoring Interpretation: Different methods to categorize the overall amount of coronary plaque. Overall amount CAC SIS Visual of coronary plaque P1 Mild -100 <2 1-2 vessels with mild amount of plaque P2 Moderate 101-300 3-4 1-2 vessels with moderate amount, 3 vessels with mild amount of plaque P3 Severe 301-999 5-7 3 vessels with moderate amount, 1 vessel withsevere amount of plaque P4 Extensive >1000 >8 2-3 vessels with severe amount of plaque Calcium Score: Mild: 1-2 vessels w/mild amount of plaque Conclusion: Mild atherosclerotic plaquing noted 11/02/24 1709 Date __ _ Jean Green MD Cosigner Signature (if applicable): Date ___ CC: Dr. Jean Green MD; Dr. Luther Tavera DO ~ Signed [facility] Work Phone: Radiology Diagnostic study note 11-02-2024 Note Date & Type Note Facility 11-02-2024 Radiology Diagnostic study note [facility] Services [address] [place] [address] Cardiac Only MR#: [id number] Acct: [id number] Name: RANGEL CASTRO Jr. Rep #: [id number] : 1965 M 59 From: Ar Knox MD PCP: Dr. Luther Tavera DO Status: RE G CLI Study:Limited Chest CT Cardiac Only Date of E xam: 11/02/24 Exam# [id number] Ordering Dr: Do renetta Tavera DO PROCEDURE: LIMITED CHEST CT CARDIAC ONLY REASON FOR EXAM: FAMILY HISTORY HEART DISEASE TECHNIQUE: Supine chest CT without contrast, high resolution CT (HRCT) protocol. One or more dose reduction techniques were used (e.g., Automated exposure control, adjustment of the mA and/or kV according to patient size, use of iterative reconstruction technique). COMPARISON: None FINDINGS: Hardware: None Lymph nodes: Small benign-appearing mediastinal lymph nodes. Heart and Vasculature: Normal heart size. No pericardial effusion. Coronary Artery Calcifications: Present Lungs and Airways: The lungs are normally expanded and clear. No septal thickening nodules or abnormal pulmonary opacities. Pleura: Unremarkable Upper Abdomen: Unremarkable Bones: Unremarkable CT/Limited Chest CT Cardiac Only IMPRESSION: Coronary artery calcification (CAC) is is present Reading Location: [facility] CC: Dr. Luther Tavera, DO ~ Stock Tracer: Signed [facility] Evaluation note 07-12-2024 Note Date & Type Note Facility 07-12-2024 Evaluation note Diagnosis Onset Date Resolution [place] of [place] acute July 4:15pm Family history of coronary artery disease acute July 12, 2024 4:15pm Irritable bowel syndrome with diarrhea acute July 12, 2024 4:15pm Physical exam acute July 122023 4:15pm Piriformis syndrome acute Decem 2023 4:15pm Tension type headache acute Dec emb2023 4:15pm Erectile dysfunction chronic Dece mb2023 4:15pm [facility] Work Phone: Evaluation note Note Date & Type Note Facility Evaluation note Diagnosis Onset Date Easy bruisability acute Low back pain acute Near syncope acute Urinary frequency acute [facility] Work Phone: Evaluation note Note Date & Type Note Facility Evaluation note Diagnosis Onset Date [place] of foot acute Irritable bowel syndrome with diarrhea acute Lightheadedness acute Urinary frequency acute Erectile dysfunction chronic [facility] Work Phone: Evaluation note Note Date & Type Note Facility [facility] Reason for referral (narrative) Note Date & Type Note Facility Reason for referral (narrative) No reason for referral information available [facility] Work Phone: Summary Purpose Family History No Family History Records Found Relationship Condition Age at Onset Recorded Date/T kavita father Cardiac disease 54 grandfather Cardiac disease 38 uncle Cerebrovascular accident (CVA) Unknown Advance Directives No Advanced Directives Records Found Advance Directive Response Recorded Date/ Time Living Will No November 27, 2020 8:42am Power of Cloth Hand No November 27 8:42am Advance Directive Response Recorded Date/ Time Living Will No November 27, 2020 9:42am Do you have a Healthcare Power of Cloth Hand? No November 27, 2020 9:42am Chief Complaint and Reason for Visit Chief Complaint PHYSICAL E ORDERS Reason for Visit Easy bruisability Low back pain Near syncope Urinary frequency Chief Complaint 1 YR PHYSICAL Reason for Visit [place] of foot Irritable bowel syndrome with diarrhea Lightheadedness Urinary frequency Erectile dysfunction Chief Complaint Admit Date 1 Y FU July 12, 2024 4:15pm FAMILY HISTORY OF HEART DISEASE November 2:42pm FAMILY HISTORY OF HEART DISEASE November 5:07pm Reason for Visit Admit Date [place] of foot July 12, 2024 4:15pm Family history of coronary artery diseas e July 12, 2024 4:15pm Irritable bowel syndrome with diarrhea D [id number] 4:15pm Physical exam July 12, 2024 4:15pm Piriformis syndrome July 12, 2024 4:15pm Tension type headache July 12 4:15pm Erectile dysfunction July 12, 2024 4:15pm Chief Complaint Admit Date FAMILY HISTORY OF HEART DISEASE November 2:42pm FAMILY HISTORY OF HEART DISEASE November 5:07pm ABN CCTA (LIANG) December 21, 2024 3:23p m Additional Source Comments (unrecognized sect ion and content) No Status Records FoundNo Status Records Found INFORMATION SOURCE (unrecogn ized section and content) DATE CREATED AUTHOR 09/20/2019 [employer] ([place]) DATE CREATED AUTHOR AUTHOR'S ORGANIZ ATION 12/28/2024 [facility] Goals (unrecognized section and content) Goals may be documented in a n alternate sectionGoals may be documented in an alternate sectionGoals may be documented in an alternate sectionGoals may be documented in an alternate section Care Teams (unrecognized sec tion and content) Team Status: Active Member Role Status Dates Dr. Luther Tavera DO Family Provider Active Dr. Luther Tavera DO Primary Care Provider Active Team Status: Inactive Member Role Status Dates Dr. Luther Tavera DO Primary Care Pr ovider, Attending Provider, Referring Provider Active Team Status: Inactive Member Role Status Dates Dr. Luther Tavera DO Primary Care Provider, Attend ing Provider Active Team Status: Active Member Role Status Dates Dr. Luther Tavera DO Primary Care Provider Active Team Status: Inactive Member Role Status Dates Dr. Luther Tavera DO Primary Care Provider Active Start: July 12, 2024 End: July 12, 2024 Dr. Luther Tavera DO Attending Provider Active Start: July 12, 2024 End: July 12, 2024 Dr. Luther Tavera DO Referring Provider Active Start: July 12, 2024 End: July 12, 2024 Team Status: Inactive Member Role Status Dates Dr. Luther Tavera DO Primary Care Provider Active Start: November 02, 2024 End: November 02, 2024 Dr. Luther Tavera DO Attending Provider Active Start: November 02, 2024 End: November 02, 2024 Dr. Luther Tavera DO Referring Provider Active Start: November 02, 2024 End: November 02, 2024 Team Status: Active Member Role Status Dates Dr. Luther Tavera DO Primary Care Provider Active Start: November 02, 2024 Dr. Luther Tavera DO Referring Provider Active Start: November 02, 2024 Dr. Luther Tavera DO Other Provider Active S tart: November 02, 2024 Dr. Jean Green MD Attending Provider Active S tart: November 02, 2024 Team Status: Inactive Member Role Status Dates Dr. Luther Tavera DO Primary Care Provider Active Start: December 21, 2024 End: December 21, 2024 Dr. Luther Tavera DO Referring Provider Active Start: December 21, 2024 End: December 21, 2024 Dr. Jean Green MD Attending Provider Active S tart: December 21, 2024 End: December 21, 2024 FOR RECORDS PERTAINING TO PATIENTS WHO ARE OR HAVE BEEN ENROLLED IN A CHEMICAL DEPENDENCY/SUBSTANCEABUSE PROGRAM, SOME INFORMATION MAY BE OMITTED. This clinical summary was aggregated from multiple sources. Caution should be exercised in using it in the provision of clinical care. This summary normalizes information from multiple sources, and as a consequence, information in this document may materially change the coding, format and clinical context of patient data. In addition, data may be omitted in some cases. CLINICAL DECISIONS SHOULD BE BASED ON THE PRIMARY CLINICAL RECORDS. [facility] [employer] provides no warranty or guarantee of the accuracy or completeness of information in this document.
[2025-02-24 13:41] LABS: AST(SGOT) 34 U/L (<=37); Alanine Aminotransfer ALT/SGPT 22 U/L (<=46); Albumin, Serum 4.2 g/dL (3.5-5.0); Alkaline Phosphatase 47 U/L (40-129); Anion Gap 11 (5-15); BUN 12 mg/dL (4-19); BUN/Creat Ratio 10.7 RATIO (10-20); Calcium,Total 9.5 mg/dL (7.6-11.0); Carbon Dioxide 24.7 mmol/L (21.0-32.0); Chloride 95 mmol/L (98-108); Cholesterol 203 mg/dL (<=200); Globulin 2.2 g/dL (2.2-4.2); Glucose 91 mg/dL (70-99); Low Density Lipoprotein Calc. 118 mg/dL; PSA,Total- Diagnostic 0.16 ng/mL (0.00-4.00); Potassium 4.2 mmol/L (3.3-5.1); Triglycerides 35 mg/dL; Very Low Density Lipoprotein 7 mg/dL (5-40); cholesterol:hdl ratio screen 2.60
== END | disposition home or self-care (01) ==
LOC: BIMLAB 08:52
PROVIDERS: PCP Family Medicine; Referring Provider Family Medicine; Visit Provider Family Medicine
DX: K58.0 Irritable bowel syndrome with diarrhea (principal); N52.9 Male erectile dysfunction, unspecified
CPT/HCPCS: 36415; 80053; 80061; 84153